=== PATIENT | male | born 1985 | race Caucasian/White ===

== ENCOUNTER 2019-07-16 00:35 | Emergency (ER) | payer MEDICAID ==
--- NOTE | 2019-07-16 00:42 | ED Physician Documentation ---
PD HPI ABD PAIN - Stated complaint Stated Complaint: ABD PX - History obtained from History obtained from: Patient - History of Present Illness Timing - onset: How many days ago (3-4) Timing - duration: Days Timing - details: Gradual onset Pain level now: 2 Quality: Pain Worsened by: Palpation Recently seen: Not recently seen - Additional information Additional information: c/o "painful lump" on abdominal wall x 3-4 days. He does admit to injecting heroin, but denies doing so anywhere besides [facility] (and specifically no into abdominal wall). Review of Systems Constitutional: denies: Fever GI: reports: Abdominal Pain (abdominal wall pain, but not abdominal pain per se). denies: Nausea, Vomiting Skin: reports: Lesions PD PAST MEDICAL HISTORY - Past Medical History Past Medical History: No - Present Medications Home Medications: Ambulatory Orders Medication Instructions Recorded Confirmed Cephalexin [Keflex] 500 mg PO Q6H #28 capsule 07/16/19 Sulfamethox/Trimeth 800/160 1 each PO BID #14 tablet 07/16/19 [Bactrim Ds 800/160] - Allergies Allergies/Adverse Reactions: Allergies Allergy/AdvReac Type Severity Reaction Status Date / Time No Known Drug Allergies Allergy Verified 07/16/19 01:06 - Social History Does the pt have substance abuse?: Yes Substance Use and Type: Heroin PD ED PE NORMAL - Vitals Vital signs reviewed: Yes - General General: Alert and oriented X 3, No acute distress, Well developed/nourished PD ED PE EXPANDED - Abdomen Abdomen Visual: 1 - rash (confluent, flat erythema that is minimally tender, without swelling or raised/palpable margins. No fluctuance or discharge.), tenderness Results - Vitals Vitals: Vital Signs - 24 hr 07/16/19 07/16/19 00:50 02:04 Temperature 37.6 C H 37.0 C Heart Rate 98 88 Respiratory 16 16 Rate Blood Pressure 139/68 H 155/70 H O2 Saturation 99 100 Oxygen O2 Source Room air PD MEDICAL DECISION MAKING - ED course Complexity details: considered differential, d/w patient Departure - Departure Disposition: 01 Home, Self Care Clinical Impression: Cellulitis Qualifiers: Site of cellulitis: trunk Site of cellulitis of trunk: abdominal wall Qualified Code(s): L03.311 - Cellulitis of abdominal wall Condition: Good Instructions: ED Infec Skin Cellulitis Prescriptions: Cephalexin [Keflex] 500 mg PO Q6H #28 capsule Sulfamethox/Trimeth 800/160 [Bactrim Ds 800/160] 1 each PO BID #14 tablet Discharge Date/Time: 07/16/19 02:07
[2019-07-16] MEDS ORDERED: cefTRIAXone 1 GM VIAL IM STA (01:23)
[2019-07-16] MEDS ORDERED: LIDOCAINE 1% 2 ML VIAL MC ONE (01:24)
[2019-07-16] MEDS ORDERED: SULFAMETH/TRIMETH DS 800/160 MG TABLET PO STA (01:24)
[2019-07-16 02:05] VITALS: BP 155/70
== END 2019-07-16 02:07 | disposition home or self-care (01) ==
LOC: ED 00:35
DX: L03.311 Cellulitis of abdominal wall (principal)
CPT/HCPCS: 96372; 99283; A9270

== ENCOUNTER 2023-04-17 00:11 | Outpatient (CLI) | payer MEDICAID | END 2023-04-17 23:59 | disposition critical access hospital (66) | LOC: EMS 00:11 | DX: R06.02 Shortness of breath (principal); R05.9 Cough, unspecified; R09.3 Abnormal sputum; F11.90 Opioid use, unspecified, uncomplicated | CPT/HCPCS: A0425; A0429; A0999 ==

== ENCOUNTER 2023-04-17 00:34 | Emergency (ER) | payer MEDICAID ==
--- NOTE | 2023-04-17 01:07 | ED Physician Documentation ---
PD HPI DYSPNEA - Stated complaint Stated Complaint: SOA, RECENT PNA - Chief complaint Chief Complaint: Resp - History obtained from History obtained from: Patient - Additional information Additional information: Patient is a 37-year-old male presenting for evaluation of feeling short of breath. Patient states he was recently admitted at [facility] from 07 06- for pneumonia. He states he left AGAINST MEDICAL ADVICE. He did fill his prescriptions for the antibiotics but has not been taking them. He is here at his parents house now. He does admit to fentanyl use and last used yeste rday. Worsening shortness of breath today.No fevers or chest pain.Denies alcohol use. Review of Systems Constitutional: denies: Fever Cardiac: denies: Chest pain / pressure Respiratory: reports: Dyspnea, Cough GI: denies: Abdominal Pain, Vomiting : denies: Dysuria PD PAST MEDICAL HISTORY - Past Medical History Past Medical History: Yes Musculoskeletal: Chronic back pain - Past Surgical History Past Surgical History: Yes Ortho: Other - Present Medications Home Medications: Ambulatory Orders Medication Instructions Recorded Confirmed No Known Home Medications 04/17/23 04/17/23 - Allergies Allergies/Adverse Reactions: Allergies Allergy/AdvReac Type Severity Reaction Status Date / Time NSAIDS (Non-Steroidal Allergy Unknown Verified 04/17/23 00:46 Anti-Inflamma - Social History Does the pt smoke?: Yes Smoking Status: Current every day smoker Does the pt drink ETOH?: No Does the pt have substance abuse?: Yes Substance Use and Type: Other - Immunizations Immunizations are current?: Yes - POLST Patient has POLST: No PD ED PE NORMAL - General General: Alert and oriented X 3, Well developed/nourished - HEENT HEENT: Atraumatic, Moist mucous membranes - Neck Neck: Supple, no meningeal sign - Cardiac Cardiac: Strong equal pulses, Other (Tachycardic, regular rhythm) - Respiratory Respiratory: Other (Tachypneic, coarse breath sounds bilaterally) - Abdomen Abdomen: Normal bowel sounds, Soft, Non tender, Non distended - Derm Derm: Warm and dry - Extremities Extremities: No calf tenderness / cord - Neuro Neuro: Normal speech Results - Vitals Vitals: Vital Signs - 24 hr 04/17/23 04/17/23 04/17/23 00:38 01:20 01:52 Temperature 36.5 C Heart Rate 124 H 108 H Respiratory 41 H 40 H 28 H Rate Blood Pressure 111/66 107/76 O2 Saturation 100 42 L 85 L If not protocol 4 13 : Oxygen Flow, liters/minute 04/17/23 04/17/23 02:13 04:00 Temperature Heart Rate 108 H 106 H Respiratory 30 H 31 H Rate Blood Pressure 114/77 O2 Saturation 94 93 If not protocol 15 13 : Oxygen Flow, liters/minute Oxygen O2 Source Non-rebreather mask Oxygen Flow Rate 13 - EKG (time done) 0156 EKG releavant findings:: EKG personally interpreted by author of this note. Relevant findings are: Rate 108, sinus tachycardia, no STEMI, QTc 443, motion artifact in anterior leads - Labs Labs: Laboratory Tests 04/17/23 04/17/23 04/17/23 01:10 01:40 01:40 WBC 12.5 H RBC 4.09 L Hgb 10.0 L Hct 32.9 L MCV 80.4 MCH 24.4 L MCHC 30.4 L RDW 17.3 H Plt Count 318 MPV 10.4 Neut # (Auto) 10.4 H Lymph # (Auto) 1.4 L [place] # (Auto) 0.5 Eos # (Auto) 0.0 Baso # (Auto) 0.0 Absolute Nucleated RBC 0.00 Nucleated RBC % 0.0 Bld Gas Analysis Time 0119 Sample Site RIGHT RADIAL ABG pH 7.48 H ABG pCO2 34 ABG pO2 33 L* ABG HCO3 24.2 ABG Total CO2 25.2 ABG O2 Saturation 57 L* ABG Base Excess 1.0 Steve Test POSITIVE O2 Delivery Device NASAL CANNULA O2 Liters/Min 4.00 Sodium 133 L Potassium 4.4 Chloride 97 L Carbon Dioxide 23 Anion Gap 13.0 BUN 46 H Creatinine 1.3 Estimated GFR (MDRD) 62 L Glucose 118 H Lactic Acid Calcium 8.6 Total Bilirubin 0.4 AST 36 ALT 18 Alkaline Phosphatase 79 B-Natriuretic Peptide Total Protein 7.7 Albumin 2.9 L Globulin 4.8 H Albumin/Globulin Ratio 0.6 L Lipase < 10 L Nasal Adenovirus (PCR) Nasal B. parapertussis DNA (PCR) Nasal Coronavir 229E PCR Nasal Coronavir HKU1 PCR Nasal Coronavir NL63 PCR Nasal Coronavir OC43 PCR Nasal Enterovir/Rhinovir PCR Nasal Influenza B PCR Nasal Influenza A PCR Nasal Parainfluen 1 PCR Nasal Parainfluen 2 PCR Nasal Parainfluen 3 PCR Nasal Parainfluen 4 PCR Nasal RSV (PCR) Nasal B.pertussis DNA PCR Nasal C.pneumoniae (PCR) Guy Human Metapneumo PCR Nasal M.pneumoniae (PCR) Nasal SARS-CoV-2 (PCR) 04/17/23 04/17/23 04/17/23 01:40 01:40 02:26 WBC RBC Hgb Hct MCV MCH MCHC RDW Plt Count MPV Neut # (Auto) Lymph # (Auto) [place] # (Auto) Eos # (Auto) Baso # (Auto) Absolute Nucleated RBC Nucleated RBC % Bld Gas Analysis Time Sample Site ABG pH ABG pCO2 ABG pO2 ABG HCO3 ABG Total CO2 ABG O2 Saturation ABG Base Excess Steve Test O2 Delivery Device O2 Liters/Min Sodium Potassium Chloride Carbon Dioxide Anion Gap BUN Creatinine Estimated GFR (MDRD) Glucose Lactic Acid 3.8 H* Calcium Total Bilirubin AST ALT Alkaline Phosphatase B-Natriuretic Peptide 861 H Total Protein Albumin Globulin Albumin/Globulin Ratio Lipase Nasal Adenovirus (PCR) NOT DETECTED Nasal B. parapertussis DNA (PCR) NOT DETECTED Nasal Coronavir 229E PCR NOT DETECTED Nasal Coronavir HKU1 PCR NOT DETECTED Nasal Coronavir NL63 PCR NOT DETECTED Nasal Coronavir OC43 PCR NOT DETECTED Nasal Enterovir/Rhinovir PCR NOT DETECTED Nasal Influenza B PCR NOT DETECTED Nasal Influenza A PCR NOT DETECTED Nasal Parainfluen 1 PCR NOT DETECTED Nasal Parainfluen 2 PCR NOT DETECTED Nasal Parainfluen 3 PCR NOT DETECTED Nasal Parainfluen 4 PCR NOT DETECTED Nasal RSV (PCR) DETECTED A Nasal B.pertussis DNA PCR NOT DETECTED Nasal C.pneumoniae (PCR) NOT DETECTED Guy Human Metapneumo PCR NOT DETECTED Nasal M.pneumoniae (PCR) NOT DETECTED Nasal SARS-CoV-2 (PCR) NOT DETECTED PD Medical Decision Making - ED course Complexity details: reviewed results, re-evaluated patient, d/w patient ED course: 352 - D/W Dr. Armstrong (ICU, [facility]). Accepts patient for transfer. 404 - D/W pt. He reports feeling better. He remains on a nonrebreather with O2 sats between 92 to 94%. He is able to tell me that he understands the plan that he has a going to [facility] in [place]. He also request that I call his father Yadiel at [phone] weight. I did attempt to call his father but there was no answer so I did leave a voice message to call back to the ER. 0424 - Prefer patient to be transported by air given duration it would take ground EMS. However air transport is not available due to weather and icing issues so he will need to go by ground. Discussed with lead medic will arrange for an ambulance to be available. Pt is a 37 yo M with SOA. H/O IVDA. Recent admission for PNA and signed out AMA without completing course of antibiotics. Pt is tachycardic and tachypneic. Coarse breath sounds. Needing increasing O2 requirements. ABG with mild alkalosis - possible venous given low O2. CBC, chemistries, reviewed. Lactic 3.8. Chest XR with mutlifocal PNA. Pt given Iv fluid bolus which improved tachycardia. Given elevated O2 requirements and chest XR and recent hospitalization, pt started on cefepime and vancomycin. Swab + for RSV. No ICU beds available at [facility] and pt requiring NRB to maintain O2 sat. D/W [facility] who accepts in transfer. Air transport not available due to weather so pt transported by ground. Pt appears more comfortable, does not look like he is getting fatigued. Answering questions reliably and understands plan for transport. Attempted to call father per pt's request and left VM. Departure - Departure Disposition: 02 Transfer Acute Care Hosp Clinical Impression: Acute hypoxic respiratory failure, Multifocal pneumonia, IV drug abuse, Lactic acidosis Condition: Serious Forms: PCP List Discharge Date/Time: 04/17/23 04:50
[2023-04-17 01:25] LABS: ABG PCO2 34 mmHg (34-45); ABG PH 7.48 (7.35-7.45)
[2023-04-17 01:26] LABS: ABG HCO3 24.2 mmol/L (22.0-26.0); ABG PO2 33 mmHg (80-100); ABG TCO2 25.2 MMOL/L (21.0-29.0)
[2023-04-17 01:28] LABS: ABG OXYGEN SATURATION 57 % (94-98); ALLEN TEST POSITIVE
--- NOTE | 2023-04-17 01:28 | XRAY Report ---
PROCEDURE: Chest 1V INDICATIONS: SOA TECHNIQUE: One view of the chest was acquired. COMPARISON: None. FINDINGS: Surgical changes and devices: None. Lungs and pleura: No pleural effusions or pneumothorax. Patchy bilateral pulmonary opacities, most p ronounced within the bilateral mid and upper lung larsen.. Mediastinum: Mediastinal contours appear normal. Heart size is normal. Bones and chest wall: No suspicious bony lesions. Overlying soft tissues appear unremarkable. IMPRESSION: Patchy bilateral pulmonary opacities, concerning for multifocal pneumonia. Reviewed by: Jordi Mahoney MD on 04/17/2023 1:27 AM PST Approved by: Jordi Mahoney MD on 04/17/2023 1:27 AM PST Station ID: [id number]
[2023-04-17 01:47] LABS: BASOPHILS % (AUTO) 0.2 %; HCT - HEMATOCRIT 32.9 % (42.0-52.0); LYMPHOCYTES # (AUTO) 1.4 10^3/uL (1.5-3.5); LYMPHOCYTES % (AUTO) 11.5 %; MEAN CORPUSCULAR HEMOGLOBIN 24.4 pg (27.0-31.0); MEAN CORPUSCULAR HGB CONC 30.4 g/dL (32.0-36.0); MEAN CORPUSCULAR VOLUME 80.4 fL (80.0-94.0); MEAN PLATELET VOLUME 10.4 fL (7.4-11.4); MONOCYTES # (AUTO) 0.5 10^3/uL (0.0-1.0); MONOCYTES % (AUTO) 4.2 %; NEUTROPHILS # (AUTO) 10.4 10^3/uL (1.5-6.6); NEUTROPHILS % (AUTO) 83.4 %; PLT - PLATELET COUNT 318 10^3/uL (130-450); RED BLOOD COUNT 4.09 10^6/uL (4.70-6.10); RED CELL DISTRIBUTION WIDTH 17.3 % (12.0-15.0); WHITE BLOOD COUNT 12.5 x10^3/uL (4.8-10.8)
[2023-04-17] MEDS ORDERED: SODIUM CHLORIDE 0.9% 1,000 ML IV STA (01:51)
[2023-04-17 02:05] LABS: ALBUMIN 2.9 g/dL (3.2-5.5); ALBUMIN/GLOBULIN RATIO 0.6 (1.0-2.2); ALKALINE PHOSPHATASE 79 IU/L (42-121); ALT ALANINE AMINOTRANSFERASE 18 IU/L (10-60); AST ASPARTATE AMINOTRANSFERASE 36 IU/L (10-42); BILIRUBIN,TOTAL 0.4 mg/dL (0.2-1.0); BUN - BLOOD UREA NITROGEN 46 mg/dL (6-20); CALCIUM 8.6 mg/dL (8.5-10.3); CARBON DIOXIDE - CO2 23 mmol/L (21-32); CHLORIDE 97 mmol/L (101-111); CREATININE 1.3 mg/dL (0.6-1.3); GFR - MDRD 62 (>89); GLUCOSE 118 mg/dL (74-104); POTASSIUM 4.4 mmol/L (3.5-4.5); SODIUM 133 mmol/L (135-145); TOTAL PROTEIN 7.7 g/dL (6.4-8.9)
[2023-04-17 02:09] LABS: LIPASE < 10 U/L (11-82)
[2023-04-17] MEDS ORDERED: VANCOMYCIN 1 GM VIAL ONE (02:30)
[2023-04-17] MEDS: VANCOMYCIN INJ 1 GM in SODIUM CHLORIDE 0.9% 500 ML IV STA (02:48)
[2023-04-17] MEDS: CEFEPIME 2 GM in SODIUM CHLORIDE 0.9% MINIBAG 100 ML IV STA (02:48)
[2023-04-17] MEDS: SODIUM CHLORIDE 0.9% 1,000 ML IV STA ×2 (02:49→02:51)
[2023-04-17 03:27] LABS: B. PARAPERTUSSIS- RESP PCR PAN NOT DETECTED; B. PERTUSSIS- RESP PCR PANEL NOT DETECTED; C. PNEUMONIAE- RESP PCR PANEL NOT DETECTED; CORONAVIRUS 229E-RESP PCR NOT DETECTED; CORONAVIRUS HKU1-RESP PCR NOT DETECTED; CORONAVIRUS NL63-RESP PCR NOT DETECTED; CORONAVIRUS OC43-RESP PCR NOT DETECTED; HUMAN METAPNEUMOVIRUS NOT DETECTED; INFLUENZA A- RESP PCR PANEL NOT DETECTED; INFLUENZA B - RESP PCR PANEL NOT DETECTED; M. PNEUMONIAE- RESP PCR PANEL NOT DETECTED; PARAINFLUENZA VIRUS 1 NOT DETECTED; PARAINFLUENZA VIRUS 2 NOT DETECTED; PARAINFLUENZA VIRUS 3 NOT DETECTED; PARAINFLUENZA VIRUS 4 NOT DETECTED; RHINOVIRUS/ENTEROVIRUS NOT DETECTED; RSV- RESP PCR PANEL DETECTED; SARS-CoV-2 -RESP PCR PANEL NOT DETECTED
[2023-04-17 04:16] VITALS: BP 114/77; O2SAT 93
== END 2023-04-17 04:50 | disposition short-term general hospital (02) ==
LOC: ED 00:34
DX: J96.01 Acute respiratory failure with hypoxia (principal); J18.9 Pneumonia, unspecified organism; E87.20 Acidosis, unspecified; R00.0 Tachycardia, unspecified; F17.200 Nicotine dependence, unspecified, uncomplicated; Z11.52 Encounter for screening for COVID-19
CPT/HCPCS: 36415; 36600; 71045; 80053; 82803; 83605; 83690; 83880; 85025; 87040; 87633; 93005; 96361; 96365; 96375; 99285; J3370

== ENCOUNTER 2023-04-17 04:51 | Outpatient (CLI) | payer MEDICAID | END 2023-04-17 23:59 | disposition short-term general hospital (02) | LOC: EMS 04:51 | PROVIDERS: ATTEND Emergency Medicine | DX: R09.02 Hypoxemia (principal); J18.9 Pneumonia, unspecified organism; B97.4 Respiratory syncytial virus as the cause of diseases classified elsewhere | CPT/HCPCS: A0425; A0426 ==

== ENCOUNTER 2023-05-13 12:40 | Outpatient (CLI) | payer MEDICAID ==
[2023-05-13 14:44] LABS: BASOPHILS # (AUTO) 0.1 10^3/uL (0.0-0.1); BASOPHILS % (AUTO) 0.7 %; EOSINOPHILS # (AUTO) 0.8 10^3/uL (0.0-0.7); EOSINOPHILS % (AUTO) 8.5 %; HCT - HEMATOCRIT 34.3 % (42.0-52.0); HGB - HEMOGLOBIN 10.3 g/dL (14.0-18.0); LYMPHOCYTES # (AUTO) 3.3 10^3/uL (1.5-3.5); MEAN CORPUSCULAR HEMOGLOBIN 26.5 pg (27.0-31.0); MEAN CORPUSCULAR VOLUME 88.4 fL (80.0-94.0); MEAN PLATELET VOLUME 9.4 fL (7.4-11.4); MONOCYTES # (AUTO) 0.9 10^3/uL (0.0-1.0); MONOCYTES % (AUTO) 8.9 %; NEUTROPHILS # (AUTO) 4.4 10^3/uL (1.5-6.6); NEUTROPHILS % (AUTO) 45.9 %; PLT - PLATELET COUNT 334 10^3/uL (130-450); RED BLOOD COUNT 3.88 10^6/uL (4.70-6.10); RED CELL DISTRIBUTION WIDTH 21.4 % (12.0-15.0); WHITE BLOOD COUNT 9.7 x10^3/uL (4.8-10.8)
[2023-05-13 14:45] LABS: SLIDE REVIEW? Indicated
[2023-05-13 14:57] LABS: PLATELET ESTIMATE, MANUAL NORMAL (130-450,000) (NORMAL); PLATELET MORPHOLOGY NORMAL APPEARANCE (NORMAL)
[2023-05-13 15:32] LABS: ALBUMIN 3.6 g/dL (3.2-5.5); ALBUMIN/GLOBULIN RATIO 1.1 (1.0-2.2); ALKALINE PHOSPHATASE 74 IU/L (42-121); ALT ALANINE AMINOTRANSFERASE 23 IU/L (10-60); AST ASPARTATE AMINOTRANSFERASE 17 IU/L (10-42); BILIRUBIN,TOTAL 0.4 mg/dL (0.2-1.0); BUN - BLOOD UREA NITROGEN 36 mg/dL (6-20); CALCIUM 9.3 mg/dL (8.5-10.3); CARBON DIOXIDE - CO2 33 mmol/L (21-32); CHLORIDE 101 mmol/L (101-111); CHOL/HDL RATIO 2.5 (<5.0); CHOLESTEROL 179 mg/dL; CREATININE 0.6 mg/dL (0.6-1.3); GFR - MDRD 152 (>89); GLUCOSE 87 mg/dL (74-104); HDL CHOLESTEROL 73 mg/dL; LDL CHOLESTEROL,CALCULATED 93 mg/dL; LDL/HDL RATIO 1.3 (<3.6); POTASSIUM 4.6 mmol/L (3.5-4.5); SODIUM 137 mmol/L (135-145); TOTAL PROTEIN 6.8 g/dL (6.4-8.9); TRIGLYCERIDES 65 mg/dL (48-352); VLDL CHOLESTEROL 13 mg/dL
[2023-05-13 22:36] LABS: ESTIMATED AVERAGE GLUCOSE 74 mg/dL (70-100); HEMOGLOBIN A1c% 4.2 % (4.27-6.07)
== END 2023-05-13 12:41 | disposition home or self-care (01) ==
LOC: LAB.S 12:40
PROVIDERS: ATTEND Physician Assistant Medical
DX: J96.01 Acute respiratory failure with hypoxia (principal); Z13.9 Encounter for screening, unspecified
CPT/HCPCS: 36415; 80053; 80061; 83036; 83721; 85025

== ENCOUNTER 2023-06-23 13:49 | Outpatient (CLI) | payer MEDICAID ==
[2023-06-23 20:07] LABS: ABSOLUTE RETICS # AUTO 0.041 10^6/uL (0.020-0.110); BASOPHILS % (AUTO) 0.5 %; EOSINOPHILS # (AUTO) 0.6 10^3/uL (0.0-0.7); EOSINOPHILS % (AUTO) 8.9 %; HCT - HEMATOCRIT 36.3 % (42.0-52.0); HGB - HEMOGLOBIN 11.6 g/dL (14.0-18.0); LYMPHOCYTES # (AUTO) 2.5 10^3/uL (1.5-3.5); LYMPHOCYTES % (AUTO) 40.7 %; MEAN CORPUSCULAR HEMOGLOBIN 26.5 pg (27.0-31.0); MEAN CORPUSCULAR VOLUME 82.9 fL (80.0-94.0); MEAN PLATELET VOLUME 9.4 fL (7.4-11.4); MONOCYTES # (AUTO) 0.6 10^3/uL (0.0-1.0); MONOCYTES % (AUTO) 10.4 %; NEUTROPHILS # (AUTO) 2.4 10^3/uL (1.5-6.6); NEUTROPHILS % (AUTO) 39.2 %; PLT - PLATELET COUNT 211 10^3/uL (130-450); RED BLOOD COUNT 4.38 10^6/uL (4.70-6.10); RED CELL DISTRIBUTION WIDTH 14.9 % (12.0-15.0); RETICULOCYTE COUNT % (AUTO) 0.94 % (0.5-2.3); WHITE BLOOD COUNT 6.2 x10^3/uL (4.8-10.8)
== END 2023-06-23 13:50 | disposition home or self-care (01) ==
LOC: LAB.S 13:49
PROVIDERS: ATTEND Physician Assistant Medical
DX: D64.9 Anemia, unspecified (principal)
CPT/HCPCS: 36415; 81599; 82607; 82728; 82746; 83540; 84466; 85025; 85045

== ENCOUNTER 2024-11-16 09:10 | Observation (INO) ==
--- NOTE | 2024-11-16 09:25 | ED Physician Documentation ---
PD HPI DYSPNEA Stated complaint Stated Complaint: SOA, COUGH BLOOD Chief complaint Chief Complaint: Resp History obtained from History obtained from: Patient History of Present Illness Timing - onset: Today and Last night Timing - onset during: Rest Timing - details: Abrupt onset and Still present Associated symptoms: Cough, Hemoptysis, Wheezing and Chest pain / discomfort (right sided); No Palpitations, Bilateral edema or Unilateral edema Similar symptoms before: Diagnosis (pneumonia with PE/lung embolus a year ago, was on blood thinner for 6 months. ) Recently seen: Clinic (methadone clinic daily (except Wednesday) and gets Methadone 75 mg daily. ) Meds/Allgy Home Medications Ambulatory Orders Medication Instructions Recorded Confirmed methadone 10 mg/mL oral concentrate 75 mg PO DAILY 04/1111/16/24 Allergies Allergies Allergy/AdvReac Type Severity Reaction Status Date / Time NSAIDS (Non-Steroidal Allergy Unknown Verified 11/16/24 09:18 Anti-Inflamma PFSH Active Problems All Active Problems (Updated 11/16/24 @ 15:45 by Marco Torres) History of pulmonary embolism (Acute) Opiate dependence, continuous (Acute) CAP (community acquired pneumonia) (Acute) Opacity of lung on imaging study (Acute) Methadone dependence (Acute) Cough with hemoptysis (Acute) Hypoxia (Acute) Pneumonia (Acute) Medical History Medical History (Updated 11/16/24 @ 15:45 by Marco Torres) Pulmonary embolism Acute hypoxic respiratory failure History of pneumococcal infection Surgical History Surgical History (Updated 06/22/24 @ 10:58 by Maria Fernanda Miles RN) History of knee surgery Social History Social History Smoking Status: Smoker with current status unk How many cigarettes a day do you smoke? (20 cigarettes=1 Pk): 20 Patient requests smoking cessation consult: No Level: Independent Do you feel safe in your home environment?: Yes History of physical, verbal, emotional, or financial abuse?: No Substance Use: other Substance Use Details: fentanyl POLST Patient has POLST: No Exam Exam Vital Signs: Vital Signs x48h Temp Pulse Resp BP Pulse Ox 11/16/24 09:15 37.3 C 101 H 98 H 117/64 88 L Constitutional normal general appearance, distress noted (moderate) and (respiratory) and average body habitus HENMT oropharynx normal Eyes PERRL and EOMs intact bilaterally Neck/C-Spine supple and no meningeal signs Lymph no lymphadenopathy noted Chest palpation of chest normal Respiratory breath sounds unequal, abnormal respiratory effort (labored), clear to auscultation bilaterally (decreased sounds on right with coarse/wet sounds c/w infection and wheeze.), no rales and no retractions Cardiovascular heart rate abnormal (tachycardic), regular rhythm noted, no murmur and no edema Gastrointestinal abdomen soft to palpation, nontender to palpation and nondistended Extremities no tenderness (particularly no calf tenderness.) and full ROM Neurology no focal motor deficit noted Psychiatry mental status grossly normal, oriented x3, thought process normal and affect normal Skin skin color normal Results Vitals Vitals: Vital Signs - 24 hr 11/16/24 09:15 11/16/24 09:45 11/16/24 09:45 Temperature 37.3 C Temperature Source Temporal Artery Scan Pulse Rate 101 H Respiratory Rate 98 H Blood Pressure 117/64 O2 Saturation 88 L Oxygen Delivery Method Nasal Cannula Nasal Cannula O2 Source Room air Oxygen Flow Rate 4 If not protocol: Oxygen Flow, liters/minute 4 Pain Intensity 8 11/16/24 10:02 11/16/24 11:17 11/16/24 11:30 Temperature Temperature Source Pulse Rate 83 84 Respiratory Rate 19 16 Blood Pressure 112/68 O2 Saturation 97 Oxygen Delivery Method O2 Source Nasal cannula Room air Oxygen Flow Rate If not protocol: Oxygen Flow, liters/minute 4 1 Pain Intensity 8 8 11/16/24 12:01 Temperature Temperature Source Pulse Rate Respiratory Rate Blood Pressure O2 Saturation Oxygen Delivery Method O2 Source Oxygen Flow Rate If not protocol: Oxygen Flow, liters/minute Pain Intensity 8 Oxygen O2 Source Room air Oxygen Flow Rate 4 Labs Labs: Laboratory Tests 11/16/24 11/16/24 09:29 09:48 WBC 16.7 H RBC 4.58 L Hgb 13.0 L Hct 38.5 L MCV 84.1 MCH 28.4 MCHC 33.8 RDW 13.2 Plt Count 195 MPV 10.1 Neut # (Auto) 14.3 H Lymph # (Auto) 1.1 L [place] # (Auto) 1.1 H Eos # (Auto) 0.0 Baso # (Auto) 0.1 Absolute Nucleated RBC 0.00 Nucleated RBC % 0.0 Sodium 133 L Potassium 3.8 Chloride 100 L Carbon Dioxide 26 Anion Gap 7.0 BUN 23 H Creatinine 0.9 Estimated GFR (MDRD) 94 Glucose 98 Calcium 9.4 Magnesium 2.1 Total Bilirubin 1.1 H AST 27 ALT 17 Alkaline Phosphatase 66 B-Natriuretic Peptide 67 Total Protein 7.7 Albumin 4.5 Globulin 3.2 Albumin/Globulin Ratio 1.4 Lipase < 10 L Procalcitonin Immunoas 5.64 H* Nasal Adenovirus (PCR) NOT DETECTED Nasal B. parapertussis DNA (PCR) NOT DETECTED Nasal Coronavir 229E PCR NOT DETECTED Nasal Coronavir HKU1 PCR NOT DETECTED Nasal Coronavir NL63 PCR NOT DETECTED Nasal Coronavir OC43 PCR NOT DETECTED Nasal Enterovir/Rhinovir PCR NOT DETECTED Nasal Influenza B PCR NOT DETECTED Nasal Influenza A PCR NOT DETECTED Nasal Parainfluen 1 PCR NOT DETECTED Nasal Parainfluen 2 PCR NOT DETECTED Nasal Parainfluen 3 PCR NOT DETECTED Nasal Parainfluen 4 PCR NOT DETECTED Nasal RSV (PCR) NOT DETECTED Nasal B.pertussis DNA PCR NOT DETECTED Nasal C.pneumoniae (PCR) NOT DETECTED Guy Human Metapneumo PCR NOT DETECTED Nasal M.pneumoniae (PCR) NOT DETECTED Nasal SARS-CoV-2 (PCR) NOT DETECTED Rads (name of study) chest CT: Relevant Findings:: Final report received and EMP independent interpretation of test Interpretation: EXAM: [id number] CT/TAN ([id number]) PROCEDURE: CT Angio Chest INDICATIONS: cough, hypoxia, hemoptysis, h/o PE CONTRAST: 80ml omni 300 TECHNIQUE: After the administration of intravenous contrast, 2 mm axial images were acquired from the pulmonary apices to the posterior costophrenic angles during the arterial phase. In addition, 1 mm lung kernel and 5 mm soft tissue kernel reconstructions were performed. 3-dimensional coronal oblique maximum intensity projection (MIP) reformats, 8 mm axial MIP, and 5 mm coronal and sagittal MPR reformats were then performed through the thorax. For radiation dose reduction, the following was used: automated exposure control, adjustment of mA and/or kV according to patient size. COMPARISON: Chest x-ray 11/16/2024 FINDINGS: Image quality: Excellent. Large vessels: No filling defects within the opacified pulmonary arteries, accounting for motion and contrast timing. No evidence of acute aortic syndrome or aortic aneurysm. Lungs and pleura: Consolidative opacity within the right middle lobe with thickening extending to the perihilar region, as well as confluent soft tissue density measuring approximately 1.7 cm at the level of the usha. No priors.. No pleural effusions. No pneumothorax. Mediastinum: Heart size is normal. No pericardial effusion. No large vessel abnormality. No mediastinal adenopathy by size criteria. Chest wall and lower neck: Thyroid is unremarkable. No axillary or supraclavicular adenopathy by size. Bones: No aggressive osseous abnormality. Appearance of hemangioma at T11 as well as T12. Upper Abdomen: Unremarkable. IMPRESSION: No pulmonary embolus. Consolidative opacity within the right base extending to the hilar region as well as areas within the mediastinum. While this could represent pneumonia with extensive reactive adenopathy, appearance can also be seen with malignancy. Recommend correlation to patient's symptoms and short interval imaging follow-up to document resolution. Reviewed by: Jessica Hemphill MD on 11/16/2024 10:48 AM PDT PD Medical Decision Making ED course Complexity details: re-evaluated patient (sats adequate on NC after neb treatment. Has coarse sounds right sided along with infiltrate c/w likely pneumonia given abrupt onset since yesterday. DIscussed options of treat for infection and consider outpt f/u for possible bronch vs transfer and he prefers hospitalization here. ), considered differential (consider PE, pneumonia, effusion, abscess, viral infection. ), d/w patient and d/w natural remedy consultant (Hospitalist service. ) Reviewed Lab Results: resp PCR testing negative for major viruses. blood testing showing elevated WBC of 16.7K and procalcitonin of 5.64. Tese represent mostly likely bacterial infection. Chest CT showing infiltrate and perihilar possible lymph nodes. No abscess. No PEs. Pt given IV fluids, Resp neb of albuterol, Cefepime antibiotic for broad coverage, his daily dose of methadone since he did not make it to his clinic today, and extra dose of pain med for his lung pain. Discharge Plan Discharge Patient Disposition: 66 [facility] DC/Xfer Condition: Stable Clinical Impression: Pneumonia, Hypoxia, Cough with hemoptysis, Methadone dependence, Opacity of lung on imaging study Interventions: ED Admission Assessment Last Done: 11/16/24 12:30 Vitals documented within 30 minutes of discharge?: Yes
[2024-11-16 09:44] LABS: HCT - HEMATOCRIT 38.5 % (42.0-52.0); HGB - HEMOGLOBIN 13.0 g/dL (14.0-18.0); MEAN PLATELET VOLUME 10.1 fL (7.4-11.4); NRBC ABSOLUTE COUNT (AUTO) 0.00 x10^3/uL; NUCLEATED RED BLOOD CELLS AUTO 0.0 /100WBC; PLT - PLATELET COUNT 195 10^3/uL (130-450); RED CELL DISTRIBUTION WIDTH 13.2 % (12.0-15.0)
[2024-11-16] MEDS: HYDROmorphone 1 MG/ML CARPUJECT IVP STA (10:02)
--- NOTE | 2024-11-16 10:07 | XRAY Report ---
PROCEDURE: XR Chest 1V INDICATIONS: cough/ dyspnea TECHNIQUE: One view of the chest was acquired. COMPARISON: None. FINDINGS: Surgical changes and devices: None. Lungs and pleura: Increased pulmonary vascularity. Mediastinum: Prominent right hilum. Bones and chest wall: No suspicious bony lesions. Overlying soft tissues appear unremarkable. IMPRESSION: Prominent right hilum. While this could be secondary to's cannot be excluded. CT chest is recommended. Reviewed by: Jessica Hemphill MD on 11/16/2024 10:04 AM PDT Approved by: Jessica Hemphill MD on 11/16/2024 10:04 AM PDT Station ID: [id number]
[2024-11-16 10:09] LABS: ALT ALANINE AMINOTRANSFERASE 17 IU/L (10-60); AST ASPARTATE AMINOTRANSFERASE 27 IU/L (10-42); BUN - BLOOD UREA NITROGEN 23 mg/dL (6-20); CARBON DIOXIDE - CO2 26 mmol/L (21-32); CREATININE 0.9 mg/dL (0.6-1.3); GFR - MDRD 94 (>89)
[2024-11-16 10:47] LABS: B. PARAPERTUSSIS- RESP PCR PAN NOT DETECTED; B. PERTUSSIS- RESP PCR PANEL NOT DETECTED; C. PNEUMONIAE- RESP PCR PANEL NOT DETECTED; CORONAVIRUS 229E-RESP PCR NOT DETECTED; CORONAVIRUS HKU1-RESP PCR NOT DETECTED; CORONAVIRUS NL63-RESP PCR NOT DETECTED; CORONAVIRUS OC43-RESP PCR NOT DETECTED; HUMAN METAPNEUMOVIRUS NOT DETECTED; INFLUENZA A- RESP PCR PANEL NOT DETECTED; INFLUENZA B - RESP PCR PANEL NOT DETECTED; M. PNEUMONIAE- RESP PCR PANEL NOT DETECTED; PARAINFLUENZA VIRUS 1 NOT DETECTED; PARAINFLUENZA VIRUS 2 NOT DETECTED; PARAINFLUENZA VIRUS 4 NOT DETECTED; RHINOVIRUS/ENTEROVIRUS NOT DETECTED; RSV- RESP PCR PANEL NOT DETECTED; SARS-CoV-2 -RESP PCR PANEL NOT DETECTED
--- NOTE | 2024-11-16 10:52 | CT Report ---
PROCEDURE: CT Angio Chest INDICATIONS: cough, hypoxia, hemoptysis, h/o PE CONTRAST: 80ml omni 300 TECHNIQUE: After the administration of intravenous contrast, 2 mm axial images were acquired from the pulmonary apices to the posterior costophrenic angles during the arterial phase. In addition, 1 mm lung kernel and 5 mm soft tissue kernel reconstructions were performed. 3-dimensional coronal oblique maximum intensity projection (MIP) reformats, 8 mm axial MIP, and 5 mm coronal and sagittal MPR reformats were then performed through the thorax. For radiation dose reduction, the following was used: automated exposure control, adjustment of mA and/or kV according to patient size. COMPARISON: Chest x-ray 11/16/2024 FINDINGS: Image quality: Excellent. Large vessels: No filling defects within the opacified pulmonary arteries, accounting for motion and contrast timing. No evidence of acute aortic syndrome or aortic aneurysm. Lungs and pleura: Consolidative opacity within the right middle lobe with thickening extending to the perihilar region, as well as confluent soft tissue density measuring approximately 1.7 cm at the level of the usha. No priors.. No pleural effusions. No pneumothorax. Mediastinum: Heart size is normal. No pericardial effusion. No large vessel abnormality. No mediastinal adenopathy by size criteria. Chest wall and lower neck: Thyroid is unremarkable. No axillary or supraclavicular adenopathy by size. Bones: No aggressive osseous abnormality. Appearance of hemangioma at T11 as well as T12. Upper Abdomen: Unremarkable. IMPRESSION: No pulmonary embolus. Consolidative opacity within the right base extending to the hilar region as well as areas within the mediastinum. While this could represent pneumonia with extensive reactive adenopathy, appearance can also be seen with malignancy. Recommend correlation to patient's symptoms and short interval imaging follow-up to document resolution. Reviewed by: Jessica Hemphill MD on 11/16/2024 10:48 AM PDT Approved by: Jessica Hemphill MD on 11/16/2024 10:48 AM PDT Station ID: [id number]
[2024-11-16] MEDS: CEFEPIME 2 GM VIAL IVP STA (11:12)
[2024-11-16] MEDS ORDERED: ALBUTEROL NEB 2.5 MG/3 ML INH ONE (11:22)
[2024-11-16] MEDS: ALBUTEROL NEB 2.5 MG/3 ML INH STA (11:28)
[2024-11-16] MEDS: METHADONE 50 MG/5 ML ORAL SYRINGE PO STA (12:01)
[2024-11-16] MEDS ORDERED: LIDOCAINE 1% 2 ML VIAL MC STA (12:12)
[2024-11-16] MEDS ORDERED: cefTRIAXone 1 GM VIAL IVP SCH (13:00)
[2024-11-16] MEDS ORDERED: IPRATROPIUM/ALBUTEROL 3 ML NEB INH PRN (13:11)
[2024-11-16] MEDS ORDERED: SODIUM CHLORIDE FLUSH 0.9% 10 ML SYRINGE IVP PRN (13:11)
[2024-11-16] MEDS ORDERED: ONDANSETRON 4 MG/2 ML VIAL IVP PRN (13:11)
--- NOTE | 2024-11-16 13:16 | HISTORY & PHYSICAL EXAMINATION ---
<Statement entered by BASSAM Mina - 11/16/24 22:07> Attestation that the patient was seen and examined by me with a separate encounter after being seen by PA student. I reviewed the student's documentation including the patient history, physical examination, laboratory, imaging clinical assessment and treatment plan. I have discussed the management of the patient with the student and with the patient. There are no changes. I have spent 85 minutes in the care of this patient today. This includes time [id number], review and ordering of diagnostic imaging and laboratory studies and consultation with other providers. Monitoring the patient's signs symptoms, evaluation of medication effectiveness and patient's response to treatment. Chief Complaint Chief Complaint Chief Complaint: SOA and Pleuritic chest pain History of Present Illness History of Present Illness HPI Comment/Other: Brendan Jimenez is a 39 year old male with PMH of PE, Opiate Dependence, and who presented to the hospital for SOA with pleuritic chest pain. SOA and pleuritic chest pain started last night at 10pm which was accompanied by hemoptysis. Pain is described a sharp, localized to the anterior ribs near 4-5 ICS AAL, breathing makes is hurt worse, nothing makes it better. Patient reports coughing with clear sputum tinged with small amounts of blood, denies clots. Symptoms were preceded with patient smoking Fentanyl at 9pm last night and has progressed throughout the night. Denies recent illness and no sick contacts. Patient says symptoms are similar to the last time he was hospitalized for PNA. Patient also reported left calf cramping when hes laying down for a long period of time. Patient has a long standing history of opiate dependence and visits a Methadone clinic in [place] daily with exceptions to Wednesday. He was hospitalized in 04/17/23 for pulmonary embolism. SHx: Patient endorses a significant smoking history of 30 pack years. No ETOH. Uses Fentanyl daily. Currently unemployed and lives with his parents. Meds/Allgy Home Medications Ambulatory Orders Medication Instructions Recorded Confirmed methadone 10 mg/mL oral concentrate 75 mg PO DAILY 04/1111/16/24 Allergies Allergies Allergy/AdvReac Type Severity Reaction Status Date / Time NSAIDS (Non-Steroidal Allergy Unknown Verified 11/16/24 09:18 Anti-Inflamma PFSH Active Problems All Active Problems (Updated 11/16/24 @ 15:45 by Marco Torres) History of pulmonary embolism (Acute) Opiate dependence, continuous (Acute) CAP (community acquired pneumonia) (Acute) Opacity of lung on imaging study (Acute) Methadone dependence (Acute) Cough with hemoptysis (Acute) Hypoxia (Acute) Pneumonia (Acute) Medical History Medical History (Updated 11/16/24 @ 15:45 by Marco Torres) Pulmonary embolism Acute hypoxic respiratory failure History of pneumococcal infection Surgical History Surgical History (Updated 06/22/24 @ 10:58 by Maria Fernanda Miles RN) History of knee surgery Social History Social History How many cigarettes a day do you smoke? (20 cigarettes=1 Pk): 20 Patient requests smoking cessation consult: No Level: Independent Do you feel safe in your home environment?: Yes History of physical, verbal, emotional, or financial abuse?: No Substance Use: other Substance Use Details: fentanyl POLST Patient has POLST: No Review of Systems Constitutional Reports: Weight gain (Weight gain since 12/09, patient states he was 150lbs and currently 230lbs); Denies: Fever, Chills, Diaphoresis, Night sweats, Poor appetite or Change in sleep pattern Cardiovascular Reports: shortness of breath with exertion Respiratory Reports: Shortness of breath, Cough, Pleuritic pain and Coughing up blood Exam Exam Vital Signs: Vital Signs x48h Temp Pulse Pulse Resp BP BP Pulse Ox 11/16/24 13:41 11/16/24 12:51 37.0 C 89 18 112/63 93 11/16/24 12:22 100 18 112/68 98 11/16/24 11:30 84 16 11/16/24 11:17 83 19 112/68 97 11/16/24 09:45 11/16/24 09:15 37.3 C 101 H 98 H 117/64 88 L O2 Flow Rate 11/16/24 13:41 4 11/16/24 12:51 4 11/16/24 12:22 4 11/16/24 11:30 1 11/16/24 11:17 4 11/16/24 09:45 4 11/16/24 09:15 Constitutional normal general appearance, no apparent distress, average body habitus and alert HENMT normocephalic, head/scalp atraumatic, hearing grossly normal bilaterally, nasal mucous membranes normal, oral mucous membranes normal and dentition abnormal Eyes PERRL, EOMs intact bilaterally, conjunctivae normal and no scleral icterus Neck/C-Spine visual inspection normal, trachea midline, cervical full ROM noted, supple, no meningeal signs and thyroid normal Lymph no lymphadenopathy noted Chest inspection of chest normal and palpation of chest abnormal (Tender to palpation right chest anterior axillary 4-5 ICS) Inspection of the chest was unremarkable, Breath sounds were Respiratory breath sounds equal bilaterally, normal respiratory effort, no wheezes, rales noted (Crackles) (base) and no use of accessory muscles Cardiovascular normal heart rate noted, no gallop, no rub, no murmur and no JVD Gastrointestinal abdomen normal to inspection, abdomen soft to palpation, nontender to palpation, nondistended, normoactive bowel sounds, no hepatosplenomegaly, no masses, no pulsatile mass and no hernia Extremities abnormal to inspection (Statis dermatitis along lateral malleolus of left ankle), normal to palpation, no tenderness, no joint enlargement and no deformity Neurology carpet winder II-XII intact, no movement abnormality noted, no focal motor deficit noted and speech normal Psychiatry mental status grossly normal, oriented x3, thought process normal, cooperative, affect normal, psychomotor activity normal and memory normal Skin skin color normal, no rash, no lesions, no ecchymosis noted, no wounds, no lacerations, skin turgor normal, no jaundice and no petechiae Sepsis Event Note (H) Evaluation Current Stage of Sepsis: Sepsis Possible source of Sepsis: positive Pulmonary Sepsis Criteria Sepsis Criteria: WBC count greater than 12,000 or less than 4000 Conclusion/Plan Problem List (1) Acute hypoxic respiratory failure: Plan: 39M presented to ED hypoxia (SPO2 88). Patient has significant smoking history both tobacco and drugs. Oxygenation has improved with treatment and is currently on 2L NC down from 6L NC, will continue to wean off oxygen. Respiratory failure most likely due to CAP and not pulmonary embolism. No PE findings on CT. Treatment: DuoNeb PRN, Incentive Spirometry, Oxygen NC (2) CAP (community acquired pneumonia): Plan: Symptoms started last night at around 10pm with a cough, precipitating factors included smoking fenatyl at around 9pm. Cough was accompanied by pleuritic chest pain and hemoptysis. Chest CT revealed a consolidated opacity in right base extending to hilar region and mediastinum. Impression mentions that these findings could be community service representative of pneumonia with adenopathy or possible malignancy. Labs show elevated WBCs (16.7) and Procalcitonin (5.64). Viral respiratory panel was negative, blood cultures pending. Patient was hospitalized for CAP 11/17/23 at [facility] in [place]. Orders: Blood cultures, MRSA, ACID-FAST smear, Mycoplasma Pneumonia IgG/IgM Treatment: Rocephin IV and Zithromax, Lidocaine Patch, Tylenol Qualifiers: Laterality: right Lung location: lower lobe of lung Qualified Code(s): J18.9 - Pneumonia, unspecified organism (3) Opiate dependence, continuous: Plan: Longstanding issue, Patient travels to Methadone Clinic in [place], [place] Wednesday through Wednesday for daily evaluation and medication. Patient endorses smoking Fentanyl daily for the past 6 years. Patient expressed no consideration to quit his current opiate usage. Consult social work. Treatment: Given 75mg Methadone while in the ED,will continue daily [facility] treatment. (4) History of pulmonary embolism: Plan: Patient was diagnosed with pulmonary embolism in 11/17/23. Patient failed to f/u with Pulmonary for PFTs and is no longer receiving treatment and is no longer oxygen dependent. CT revealed no evidence of pulmonary embolism. Lab Results Lab results reviewed: Yes 11/16/24 09:29 11/16/24 09:48
[2024-11-16] MEDS: AZITHROMYCIN INJ 500 MG in SODIUM CHLORIDE 0.9% 250 ML IV SCH (13:23)
--- NOTE | 2024-11-16 15:04 | PHARMACY PROGRESS NOTE ---
Best Possible Medication History Admit Date and Time: 11/16/24 [id number] Home Medications Medication Instructions Recorded Confirmed Type methadone 10 mg/mL oral concentrate 75 mg PO DAILY 04/1111/16/24 History Processed by: Pharmacy Medications reviewed in ED?: Yes Medication History completed: Yes Patient Interview: Pt unable to participate (pt sleeping x 2.) Secondary Source(s): Pharmacy records and Insurance records [facility] Statement: As the person ultimately responsible for medication therapy, providers are able to order a medication from an existing home medication list in [facility] via the "Reconcile Routine" prior to Confirmation of that medication by support services manager. Such practice is discouraged except when the physician, in their clinical judgment, deems that a medical need exists for a medication without regard to previous use.
[2024-11-16] MEDS: guaiFENesin 100 MG/5 ML UDC PO SCH (17:07)
[2024-11-16] MEDS: oxyCODONE 5 MG TABLET PO PRN (17:08)
[2024-11-16] MEDS: SODIUM CHLORIDE FLUSH 0.9% 10 ML SYRINGE IVP SCH (17:08)
[2024-11-16] MEDS: ACETAMINOPHEN 325 MG TABLET PO PRN (18:05)
[2024-11-16] MEDS: cefTRIAXone 1 GM VIAL IVP SCH (18:47)
[2024-11-17 05:55] LABS: HCT - HEMATOCRIT 37.7 % (42.0-52.0); HGB - HEMOGLOBIN 11.8 g/dL (14.0-18.0); MEAN PLATELET VOLUME 10.1 fL (7.4-11.4); NRBC ABSOLUTE COUNT (AUTO) 0.00 x10^3/uL; NUCLEATED RED BLOOD CELLS AUTO 0.0 /100WBC; PLT - PLATELET COUNT 155 10^3/uL (130-450); RED CELL DISTRIBUTION WIDTH 13.4 % (12.0-15.0)
[2024-11-17 06:15] LABS: BUN - BLOOD UREA NITROGEN 15.0 mg/dL (6-20); CARBON DIOXIDE - CO2 28.0 mmol/L (21-32); CREATININE 0.8 mg/dL (0.6-1.3); GFR - MDRD 108.0 (>89)
[2024-11-17] MEDS: ENOXAPARIN 40 MG/0.4 ML SYRINGE SUBQ SCH (09:04)
[2024-11-17] MEDS: METHADONE 50 MG/5 ML ORAL SYRINGE PO SCH (09:16)
--- NOTE | 2024-11-17 10:04 | PROVIDER PROGRESS NOTE ---
Subjective Prog Note Date Prog Note Date: 11/17/24 Prog Note Time: 10:04 Subjective Pt reports feeling: Improved Subjective: Brendan Jimenez is a 39-year-old male with PMH of chronic opiate dependence (Fentanyl and visits a methadone clinic in [place] 6/7 days of the week), hospitalization for PNA in April and pulmonary embolus who presented with pleuritic chest pain and hemoptysis found to be in acute hypoxic respiratory failure secondary to community-acquired PNA. Today, patient reports overall improvement in his respiratory symptoms. He states he is taking breaths easier, and denies pleuritic chest pain that was present on admission. He is taking deep inspirations without pain as well. However, he continues to endorse cough with thick, bloody sputum and shows me an emesis bag with ~20-30cc of this sputum. He denies sore throat, dizziness, nausea, palpitations. He hasn't gotten up out of bed yet but denies dyspnea at rest. Current Medications Current Medications Current Medications: Current Medications Generic Name Dose Route Start Last Admin Trade Name Freq PRN Reason Stop Dose Admin Acetaminophen 650 mg 11/16/24 13:11 11/16/24 18:05 Acetaminophen 325 Mg Tablet PO 650 mg Q4HR PRN Administration Pain 1 to 4, or Fever Albuterol/Ipratropium 3 ml 11/16/24 13:11 Ipratropium/Albuterol 3 Ml Neb INH Q4HR PRN Wheezing Ceftriaxone Sodium 1 gm 11/16/24 19:00 11/17/24 09:04 Ceftriaxone 1 Gm Vial IVP 1 gm DAILY GALO Administration Enoxaparin Sodium 40 mg 11/17/24 09:00 11/17/24 09:04 Enoxaparin 40 Mg/0.4 Ml Syringe SUBQ 40 mg DAILY GALO Administration Guaifenesin 200 mg 11/16/24 16:00 11/17/24 09:04 Guaifenesin 100 Mg/5 Ml Udc PO 200 mg Q4H GALO Administration Azithromycin 500 mg/ Sodium 250 mls @ 250 mls/hr 11/16/24 13:00 11/17/24 09:29 Chloride IV 11/18/24 09:59 250 mls/hr DAILY GALO Administration Lidocaine 1 patch 11/16/24 15:40 11/17/24 09:04 Lidocaine Patch 4% TOP 1 patch DAILY GALO Administration Methadone HCl 75 mg 11/17/24 09:00 11/17/24 09:16 Methadone 50 Mg/5 Ml Oral Syringe PO 75 mg DAILY GALO Administration Ondansetron HCl 4 mg 11/16/24 13:11 Ondansetron 4 Mg/2 Ml Vial IVP Q6HR PRN Nausea / Vomiting Oxycodone HCl 5 mg 11/16/24 13:11 11/17/24 04:08 Oxycodone 5 Mg Tablet PO 5 mg Q4HR PRN Administration Pain 5 to 7 Sodium Chloride 10 ml 11/16/24 13:11 Sodium Chloride Flush 0.9% 10 Ml Syringe IVP PRN PRN NEEDED PER PROVIDER ORDERS Sodium Chloride 10 ml 11/16/24 17:00 11/17/24 09:04 Sodium Chloride Flush 0.9% 10 Ml Syringe IVP 10 ml 0100,0900,1700 GALO Administration Sterile Water 10 ml 11/16/24 13:00 11/17/24 09:03 Water For Injection,Sterile 10 Ml Vial MC 10 ml DAILY GALO Administration Objective Vital Signs/Intake & Output Intake & Output: Intake & Output 11/14/24 11/15/24 11/16/24 11/17/24 23:59 23:59 23:59 23:59 Intake Total 1950 / 1950 Output Total 500 / 500 500 / 500 Balance 1450 / 1450 -475 / -475 Weight (kg) 105 kg Lab Results 11/17/24 05:18 11/17/24 05:18 Other Labs: Lab Results x24hrs 11/17/24 11/16/24 11/16/24 Range/Units 05:18 14:00 09:48 WBC 13.9 H (4.8-10.8) x10^3/uL RBC 4.30 L (4.70-6.10) 10^6/uL Hgb 11.8 L (14.0-18.0) g/dL Hct 37.7 L (42.0-52.0) % MCV 87.7 (80.0-94.0) fL MCH 27.4 (27.0-31.0) pg MCHC 31.3 L (32.0-36.0) g/dL RDW 13.4 (12.0-15.0) % Plt Count 155 (130-450) 10^3/uL MPV 10.1 (7.4-11.4) fL Neut # (Auto) 11.5 H (1.5-6.6) 10^3/uL Lymph # (Auto) 1.1 L (1.5-3.5) 10^3/uL Curry # (Auto) 0.8 (0.0-1.0) 10^3/uL Eos # (Auto) 0.3 (0.0-0.7) 10^3/uL Baso # (Auto) 0.0 (0.0-0.1) 10^3/uL Absolute Nucleated RBC 0.00 x10^3/uL Nucleated RBC % 0.0 /100WBC Sodium 135 133 L (135-145) mmol/L Potassium 3.5 3.8 (3.5-4.5) mmol/L Chloride 101 100 L (101-111) mmol/L Carbon Dioxide 28 26 (21-32) mmol/L Anion Gap 6.0 7.0 (6-13) BUN 15 23 H (6-20) mg/dL Creatinine 0.8 0.9 (0.6-1.3) mg/dL Estimated GFR (MDRD) 108 94 (>89) Glucose 120 H 98 (74-104) mg/dL Calcium 9.1 9.4 (8.5-10.3) mg/dL Magnesium 2.1 (1.7-2.3) mg/dL Total Bilirubin 1.1 H (0.2-1.0) mg/dL AST 27 (10-42) IU/L ALT 17 (10-60) IU/L Alkaline Phosphatase 66 (42-121) IU/L B-Natriuretic Peptide 67 (5-100) pg/mL Total Protein 7.7 (6.4-8.9) g/dL Albumin 4.5 (3.2-5.5) g/dL Globulin 3.2 (2.1-4.2) g/dL Albumin/Globulin Ratio 1.4 (1.0-2.2) Lipase < 10 L (11-82) U/L Procalcitonin Immunoas 5.64 H* (<0.5) ng/mL Nasal Adenovirus (PCR) NOT DETECTED Nasal B. parapertussis DNA (PCR) NOT DETECTED Nasal Coronavir 229E PCR NOT DETECTED Nasal Coronavir HKU1 PCR NOT DETECTED Nasal Coronavir NL63 PCR NOT DETECTED Nasal Coronavir OC43 PCR NOT DETECTED Nasal Enterovir/Rhinovir PCR NOT DETECTED Nasal Influenza B PCR NOT DETECTED Nasal Influenza A PCR NOT DETECTED Nasal Parainfluen 1 PCR NOT DETECTED Nasal Parainfluen 2 PCR NOT DETECTED Nasal Parainfluen 3 PCR NOT DETECTED Nasal Parainfluen 4 PCR NOT DETECTED Nasal RSV (PCR) NOT DETECTED Nasal Screen MRSA (PCR) NEGATIVE (NEGATIVE) Nasal B.pertussis DNA PCR NOT DETECTED Nasal C.pneumoniae (PCR) NOT DETECTED Guy Human Metapneumo PCR NOT DETECTED Nasal M.pneumoniae (PCR) NOT DETECTED Nasal SARS-CoV-2 (PCR) NOT DETECTED Sepsis Event Note (H) Evaluation Current Stage of Sepsis: Sepsis Possible source of Sepsis: positive Pulmonary Sepsis Criteria Sepsis Criteria: WBC count greater than 12,000 or less than 4000 Assessment/Plan Problem List (1) Acute hypoxic respiratory failure: (2) CAP (community acquired pneumonia): Qualifiers: Laterality: right Lung location: lower lobe of lung Qualified Code(s): J18.9 - Pneumonia, unspecified organism (3) Opiate dependence, continuous: (4) History of pulmonary embolism:
--- NOTE | 2024-11-17 11:45 | Discharge Summary ---
Discharge Summary Admit Date: 11/16/24 Discharge Date: 11/17/24 Discharging Provider: BASSAM Mina Code Status: Attempt Resuscitation Discharge Facility Name: Home, self-care with parents DIAGNOSES Discharge Diagnoses with Status of Each Condition: Acute hypoxic respiratory failure, resolved and Community-acquired pneumonia, r esolving, stable for discharge Upon discharge, patient's SpO2 is stable at 94%, titrated from 6L NC on 11/16 to RA on 11/17. - Discharge with outpatient follow-up, social work is working with patient to establish primary care - Azithromycin 500mg PO daily until 11/18, and Amoxicillin-Clavulanate 875mg PO BID beginning 11/18 to complete 5-day course of antibiotics Hemoptysis, stable He continues to have small amounts of hemoptysis, unchanged from prior to admission. CT Chest/Thorax was performed which was negative for pulmonary embolus, but was suggestive of pneumonia (resolving as above) or potential malignancy. 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 in this summary Chronic opiate dependence, chronic, stable - Patient is managed by Methadone clinic in [place], however he takes Fentanyl in addition - He was counselled on signs and symptoms of opiate withdrawal and overdose, encouraged to engage in opiate use with someone else around who can call for help if needed - Discharged with emergency Naloxone in case of opiate overdose HPI History of Present Illness: Brendan Jimenez is a 39-year-old male with PMH of chronic opiate dependence (Fentanyl and visits a methadone clinic in [place] 6/7 days of the week), hospitalization for PNA in April and pulmonary embolus who presented with dyspnea, pleuritic chest pain and hemoptysis found to be in acute hypoxic respiratory failure secondary to community-acquired PNA. He presented to the ED with one day of dyspnea and pleuritic chest pain accompanied by hemoptysis. His pain was described as sharp and localized to the anterior ribs near 4-5 ICS AAL, breathing makes it hurt worse, nothing makes it better. Patient reported coughing clear sputum tinged with small amounts of blood, denied clots. Symptoms were preceded with patient smoking Fentanyl at 9pm last night and had progressed throughout the night. Denied recent illness, no sick contacts. Patient says symptoms are similar to the last time he was hospitalized for PNA. Patient also reported left calf cramping when hes laying down for a long period of time. Patient has a long standing history of opiate dependence and visits a Methadone clinic in [place] daily with exceptions to Wednesday. He was hospitalized in 04/17/23 for pulmonary embolism. CONSULTS | PROCEDURES Consultations: Respiratory Therapy, Part Time Flexible Clerk Procedures: CHEST X-RAY 11/16/24 EXAM: [id number] XR/CXR1VW ([id number]) PROCEDURE: XR Chest 1V INDICATIONS: cough/ dyspnea TECHNIQUE: One view of the chest was acquired. COMPARISON: None. FINDINGS: Surgical changes and devices: None. Lungs and pleura: Increased pulmonary vascularity. Mediastinum: Prominent right hilum. Bones and chest wall: No suspicious bony lesions. Overlying soft tissues appear unremarkable. IMPRESSION: Prominent right hilum. While this could be secondary to's cannot be excluded. CT chest is recommended. CTA CHEST/THORAX 11/16/24 EXAM: [id number] CT/CHTANG ([id number]) PROCEDURE: CT Angio Chest INDICATIONS: cough, hypoxia, hemoptysis, h/o PE CONTRAST: 80ml omni 300 TECHNIQUE: After the administration of intravenous contrast, 2 mm axial images were acquired from the pulmonary apices to the posterior costophrenic angles during the arterial phase. In addition, 1 mm lung kernel and 5 mm soft tissue kernel reconstructions were performed. 3-dimensional coronal oblique maximum intensity projection (MIP) reformats, 8 mm axial MIP, and 5 mm coronal and sagittal MPR reformats were then performed through the thorax. For radiation dose reduction, the following was used: automated exposure control, adjustment of mA and/or kV according to patient size. COMPARISON: Chest x-ray 11/16/2024 FINDINGS: Image quality: Excellent. Large vessels: No filling defects within the opacified pulmonary arteries, accounting for motion and contrast timing. No evidence of acute aortic syndrome or aortic aneurysm. Lungs and pleura: Consolidative opacity within the right middle lobe with thickening extending to the perihilar region, as well as confluent soft tissue density measuring approximately 1.7 cm at the level of the usha. No priors.. No pleural effusions. No pneumothorax. Mediastinum: Heart size is normal. No pericardial effusion. No large vessel abnormality. No mediastinal adenopathy by size criteria. Chest wall and lower neck: Thyroid is unremarkable. No axillary or supraclavicular adenopathy by size. Bones: No aggressive osseous abnormality. Appearance of hemangioma at T11 as well as T12. Upper Abdomen: Unremarkable. IMPRESSION: No pulmonary embolus. Consolidative opacity within the right base extending to the hilar region as well as areas within the mediastinum. While this could represent pneumonia with extensive reactive adenopathy, appearance can also be seen with malignancy. Recommend correlation to patient's symptoms and short interval imaging follow-up to document resolution. HOSPITAL COURSE Hospital Course: In the ED, he was found to hypoxic SpO2 86%, was placed on 6L NC and given Albuterol 2.5mg with improvement to 97%. WBC elevated at 16.7, PCT elevated at 5.64. Respiratory PCR was unremarkable. He had right-sided coarse lung sounds with findings on CTA Chest consistent with pneumonia with extensive reactive adenopathy. He was given Cefepime 2g IV x 1. Of note, his CTA chest was also notable for potential malignancy, however patient preferred to stay at [facility] for PNA treatment rather than be transferred to a different facility for potential bronchoscopy. He was thus admitted to the Hospitalist service for treatment of CAP given leukocytosis and acute respiratory failure. Upon admission, he was placed on IV antibiotics of Ceftriaxone 1g daily and Azithromycin 500mg daily, and given Ipratropium/Albuterol q4h PRN. He remained on 2L NC for most of the day. Respiratory cultures were obtained and sent for analysis. On hospital day 2 11/17, his leukocytosis improved to 13.9. He was titrated to RA with SpO2 maintaining >94%. He remains afebrile and his VSS, his lung sounds are no longer as coarse and rhonchorous. He states his pleuritic chest pain has improved and he is no longer dyspneic. He is being discharged after meeting the following: hypoxia resolved an on room air, improving leukocytosis, afebrile, vital signs stable, improvement in respiratory symptoms. ALLERGIES Allergies Allergy/AdvReac Type Severity Reaction Status Date / Time NSAIDS (Non-Steroidal Allergy Unknown Verified 11/16/24 09:18 Anti-Inflamma MEDICATIONS Ambulatory Orders Medication Instructions Recorded Confirmed methadone 10 mg/mL oral concentrate 75 mg PO DAILY 04/1111/16/24 Augmentin 875 mg-potassium 1 tab PO BID #6 tabs clavulanate 125 mg tablet azithromycin 500 mg tablet 500 mg PO DAILY 1 day #1 ta b 11/17/24 guaifenesin 100 mg/5 mL oral liquid 200 mg (10 mL) PO Q4H #473 mL 11/17/24 lidocaine 4 % topical patch 1 patch topical DAILY #5 e a 11/17/24 naloxone 4 mg/actuation nasal 4 mg intranasal Q2M PRN opioid 11/17/24 spray (Narcan) overdose #2 ea oxycodone 5 mg tablet 5 mg PO Q4HR PRN Pain 5 to 7 #10 11/17/24 tabs PHYSICAL EXAM AT DISCHARGE Vital Signs: Vital Signs x48h Temp Pulse Resp BP Pulse Ox 11/17/24 11:40 36.3 C L 67 20 109/63 94 General Appearance: positive No acute distress and Alert Eyes Bilateral: positive Normal inspection, PERRL and Conjunctivae nml ENT: positive Dry mucous membranes Neck: positive Nml inspection and Trachea midline Respiratory: positive Chest non-tender and No respiratory distress; negative Breath sounds nml (Intermittent coarse lung sounds on inspiration to RLL, improved from initial admission) or Wheezes Cardiovascular: positive Regular rate & rhythm and No murmur Peripheral Pulses: positive 2+ Abdomen: positive Non-tender, Nml bowel sounds and No distention Back: positive Nml inspection Skin: positive Color nml, No rash, Dry and Other (Bruising to L lateral malleolus, mycotic toenails) Extremities: positive Non-tender, Full ROM, Nml appearance and No pedal edema Neurologic/Psychiatric: positive Oriented x3, Motor nml and Sensation nml LABS 11/17/24 05:18 11/17/24 05:18 DIAGNOSTIC IMAGING Diagnostic Imaging Results: Final report reviewed SEPSIS Current Stage of Sepsis: Resolved Possible source of Sepsis: Pulmonary Sepsis Criteria: WBC count greater than 12,000 or less than 4000 TIME SPENT Time Spent in Discharge (Minutes): 35 Discharge Plan Discharge Patient Disposition: Home, Self Care Condition: Stable Prescriptions: New naloxone [Narcan] 4 mg/actuation spray,non-aerosol 4 mg intranasal Q2M PRN (Reason: opioid overdose) Qty: 2 0RF Rx Instructions: spray 1 dose into ONE nostril; alternate nostrils w each dose until help arrives guaifenesin 100 mg/5 mL Liquid 200 mg PO Q4H Qty: 473 0RF lidocaine 4 % Adhesive Patch,Medicated 1 patch topical DAILY Qty: 5 0RF oxycodone 5 mg Tablet 5 mg PO Q4HR PRN (Reason: Pain 5 to 7) Qty: 10 0RF azithromycin 500 mg tablet 500 mg PO DAILY 1 Days Qty: 1 0RF Rx Instructions: Take one tab on 11/18 amoxicillin-pot clavulanate 875-125 mg tablet 1 tab PO BID Qty: 6 0RF Continued methadone 10 mg/mL concentrate 75 mg PO DAILY Rx Instructions: [facility] [place] Last dose 11/15 @ 10:57 - 75 mg (verified with JOJO Cárdenas) Diet: Regular Interventions: Discharge Last Done: 11/17/24 13:48 Discharge Checklist - Nursing Last Done: 11/17/24 13:49 Health Concerns: you came into the hospital with difficulty breathing. You were needing oxygen. We have been able to treat your pneumonia, and get you off oxygen, which means that you can go home. I have written you prescriptions for 2 antibioitics. you need to start them tomorrow- one dose of azithromycin, and 6 doses of Augmentin- finish them all. When you were in the hospital in April of 2023, you had blood clots in both of your lungs. This is why you took Eliquis for 6 months. you did not have any blood clots in your lungs this time, but you did have signs indicating infection and inflammation. Continue with methadone. STOP SMOKING FENTANYL. When you do this, it is harmful to your lungs and you are likely getting other substances as well. you have some findings on your CT of the chest that are concerning. I would strongly recommend that you see pulmonology- reading through your records and from what you have told me you have previously been seen by Dr Carey at [facility] [place]. I have sent him a copy of this report. you need to have your chest imaged again when you are feeling better, to make sure that all of the inflammation in your chest has cleared and there are not underlying masses. It is important that you establish primary care. we have given you a list of people in the community that you can see. If you call promptly, you can often be seen quickly as a "hospital followup" Care Plan Goals: finish all antibiotics as prescribed. Print Language: Tuvaluan Patient Instructions: Pneumonia Community Acquired Stand Alone Forms: PCP List Vitals documented within 30 minutes of discharge?: Yes
[2024-11-17] MEDS ORDERED: cefTRIAXone 1 GM VIAL IVP SCH (13:00)
[2024-11-17 14:57] VITALS: BP 115/63; TEMP 97.2; O2SAT 93
[2024-11-20 20:08] LABS: MYCOPLASMA PNEUMONIAE IGG ABS 421 U/mL (0-99); MYCOPLASMA PNEUMONIAE IGM ABS <770 U/mL (0-769)
--- OUTSIDE RECORDS SUMMARY | 2024-11-21 17:43 | EXTERNAL MEDICAL SUMMARY RPT | Continuity of Care Document ---
Author Organization [facility] Address [address] [place] [id number] Phone Problems date description facility 2024-11-16 12:18 Acute respiratory failure with hypoxia [facility] 2024-11-16 12:49 Acute respiratory failure with hypoxia [facility] 2024-11-16 13:31 Acute respiratory failure with hypoxia [facility] 2024-11-16 13:36 Acute respiratory failure with hypoxia [facility] 2024-11-17 11:49 Acute respiratory failure with hypoxia [facility] 2024-11-17 13:37 Pneumonia, unspecified organism [facility] 2024-11-17 13:37 Acute respiratory failure with hypoxia [facility] 2024-11-17 13:46 Pneumonia, unspecified organism [facility] 2024-11-17 13:46 Acute respiratory failure with hypoxia [facility] 2024-11-17 13:51 Pneumonia, unspecified organism [facility] 2024-11-17 13:51 Acute respiratory failure with hypoxia [facility] 2024-11-17 14:57 Pneumonia, unspecified organism [facility] 2024-11-17 14:57 Acute respiratory failure with hypoxia [facility] 2024-11-21 07:33 Opioid dependence, uncomplicate d [facility] 2024-11-21 07:33 Pneumonia, unspecified organism [facility] 2024-11-21 07:33 Acute respiratory failure with hypoxia [facility] 2024-11-21 07:33 Hemoptysis [facility] 2024-11-21 07:33 Cough, unspecified [facility] 2024-11-21 07:33 [facility]ness of breath [facility] 2024-11-21 07:33 Personal history of pulmonary e mbolism [facility] Results/Labs test date facility value unit notes Result panel 1 NUCLEATED RED BLOOD CELLS AUTO [facility]24-[facility]-16 [facility] /100wbc (missing) EOSINOPHILS # (AUTO) 2024-11-16 09:29 [facility] 0.0 10 3/ul (missing) NRBC ABSOLUTE COUNT (AUTO) 2024-11-16 [facility] .00 x10 3/ul (missing) BASOPHILS # (AUTO) 2024-11-16 09[facility] 0.1 10 3/ul (missing) MONOCYTES # (AUTO) 2024-11-16 09:29 [facility] 1.1 10 3/ul (missing) LYMPHOCYTES # (AUTO) 2024-11-16 09:29 [facility] 1.1 10 3/ul (missing) MEAN PLATELET VOLUME 2024-11-16 09:29 [facility] 10.1 fl (missing) HGB - HEMOGLOBIN 2024-11-16 09:29 [facility] 13.0 g /dl (missing) RED CELL DISTRIBUTION WIDTH 2024-11-16 09:29 [facility] 13.2 % (missing) NEUTROPHILS # (AUTO) 2024-11-16 09:29 [facility] 14.3 10 3/ul (missing) WHITE BLOOD COUNT 2024-11-16 09:29 [facility] 16.7 x10 3/ul (missing) PLT - PLATELET COUNT 2024-11-16 09:29 [facility] 195 10 3/ul (missing) MEAN CORPUSCULAR HEMOGLOBIN 2024-11-16 09:29 [facility] 28.4 pg (missing) MEAN CORPUSCULAR HGB CONC 2024-11-16 09:29 [facility] 33 .8 g/dl (missing) HCT - HEMATOCRIT 2024-11-16 09:29 [facility] 38.5 % (missing) RED BLOOD COUNT 2024-11-16 09:29 [facility] 4.58 10 6/ul (missing) MEAN CORPUSCULAR VOLUME 2024-11-16 09:29 [facility] 84.1 fl (missing) Result panel 2 LIPASE 2024-11-16 09:48 [facility] < 10 u/l As of August 2022 testing method has changed, this may include reference ranges. CREATININE 2024-11-16 09:48 [facility] 0.9 mg/dl As of August 2022 testing method has changed, this may include reference ranges. BILIRUBIN,TOTAL 2024-11-16 09:48 [facility] 1.1 mg/dl As of August 2022 testing method has changed, this may include reference ranges. ALBUMIN/GLOBULIN RATIO 2024-11-16 09:48 [facility] 1.4 (missin g) (missing) CHLORIDE 2024-11-16 09:48 [facility] 100 mmol/l As of August 2022 testing method has changed, this may include reference ranges. SODIUM 2024-11-16 09:48 [facility] 133 mmol/l (missing) ALT ALANINE AMINOTRANSFERASE 2024-11-16 09:48 [facility] 17 iu/l As of August 2022 testing method has changed, this may include reference ranges. MAGNESIUM 2024-11-16 09:48 [facility] 2.1 mg/dl As of August 2022 testing method has changed, this may include reference ranges. BUN - BLOOD UREA NITROGEN 2024-11-16 09:48 [facility] 23 mg/dl As of August 2022 testing method has changed, this may include reference ranges. CARBON DIOXIDE - CO2 2024-11-16 09:48 [facility] 26 mmol/l As of August 2022 testing method has changed, this may include reference ranges. AST ASPARTATE AMINOTRANSFERASE 2024-11-16 09:48 [facility] 27 iu/l As of August 2022 testing method has changed, this may include reference ranges. GLOBULIN 2024-11-16 09:48 [facility] 3.2 g/dl (missing) POTASSIUM 2024-11-16 09:48 [facility] 3.8 mmol/l As of August 2022 testing method has changed, this may include reference ranges. ALBUMIN 2024-11-16 09:48 [facility] 4.5 g/dl As of August 2022 testing method has changed, this may include reference ranges. PROCALCITONIN 2024-11-16 09:48 [facility] 5.64 ng/ml Critical result PrCT 5.64 ng/mL called to and read back by JOHNATHAN Florence/NEHA/ED at 16-Nov-2024 10:48 by kecia. PCT Concentration (ng/mL) Children >72hrs old and Adults Interpretation ====== ======= <0.5 Low risk of severe sepsis and/or septic shock >2.0 High risk of severe sepsis and/or septic shock Concentrations under 0.5 ng/mL do not exclude local infections or systemic infections in their initial stages (e.g. under six hours from onset of illness). PCT concentrations between 0.5 and 2.0 ng/mL should be interpreted with consideration of the patient's history. In this range, it is recommended to retest PCT within 6 to 24hours. ALKALINE PHOSPHATASE 2024-11-16 09:48 [facility] 66 iu/l As of August 2022 testing method has changed, this may include reference ranges. BNP - B-NATRIURETIC PEPTIDE 2024-11-16 09:48 [facility] 67 pg/ml (missing) ANION GAP 2024-11-16 09:48 [facility] 7.0 (missin g) (missing) TOTAL PROTEIN 2024-11-16 09:48 [facility] 7.7 g/dl As of August 2022 testing method has changed, this may include reference ranges. CALCIUM 2024-11-16 09:48 [facility] 9.4 mg/dl As of August 2022 testing method has changed, this may include reference ranges. GFR - MDRD 2024-11-16 09:48 [facility] 94 (missin g) The IDMS-traceable MDRD Study Equation has been validated extensively in and populations between the ages of 18 and 70 with impaired kidney function (eGFR < 60 mL/min/1.73m2) and has shown good performance for patients with all common causes of kidney disease. Although this equation has not been validated for patients older than 70, an MDRD-derived eGFR may still be a useful tool for providers caring for patients older than 70. References: http://www.nkdep.ni h.gov/lab-evaluatio n/gfr/creatinine-st and ardization, last updated April 2011. GLUCOSE 2024-11-16 09:48 [facility] 98 mg/dl As of August 2022 testing method has changed, this may include reference ranges. SARS-CoV-2 -RESP PCR PANEL 2024-11-16 09:48 [facility] NOT DETECTED (missin g) A negative test result for this test indicates that SARS-CoV-2 RNA was not present in the specimen above the limit of detection. Testing performed on the [employer] RP2.1 Panel, a multiplexed nucleic acid repiratory panel. Negative results do not preclude infection with SARS-CoV-2 virus and should not be the sole basis of a patient management decision. In some patients repeat testing at various time points may be necessary for virus detection. False-negative results may arise from improper sample collection, degradation of viral RNA during shipping or storage, the presence of PCR inhibitors, and/or mutation in the SARS-CoV-2 virus. INFLUENZA A- RESP PCR PANEL 2024-11-16 09:48 [facility] NOT DETECTED (missin g) Influenza A including subtypes H1, H3, and H1-2009 not detected by the [employer] RP2.1 Panel, a multiplexed nucleic acid test intended for the simultaneous qualitative detection and differentiation of nucleic acids from multiple viral and bacterial respiratory organisms. B. PARAPERTUSSIS- RESP PCR BALLARD 2024-11-16 09:48 [facility] NOT DETECTED (missin g) Negative results for this organism do not preclude infection with this organism and may require additional laboratory testing (e.g., bacterial and viral culture, immunofluorescence, and radiography) when evaluating a patient with possible respiratory tract infection. B. PERTUSSIS- RESP PCR PANEL 2024-11-16 09:48 [facility] NOT DETECTED (missin g) Negative results for this organism do not preclude infection with this organism and may require additional laboratory testing (e.g., bacterial and viral culture, immunofluorescence, and radiography) when evaluating a patient with possible respiratory tract infection. C. PNEUMONIAE- RESP PCR PANEL 2024-11-16 09:48 [facility] NOT DETECTED (missin g) Negative results for this organism do not preclude infection with this organism and may require additional laboratory testing (e.g., bacterial and viral culture, immunofluorescence, and radiography) when evaluating a patient with possible respiratory tract infection. M. PNEUMONIAE- RESP PCR PANEL 2024-11-16 09:48 [facility] NOT DETECTED (missin g) Negative results for this organism do not preclude infection with this organism and may require additional laboratory testing (e.g., bacterial and viral culture, immunofluorescence, and radiography) when evaluating a patient with possible respiratory tract infection. CORONAVIRUS 229E-RESP PCR 2024-11-16 09:48 [facility] NOT DETECTED (missin g) Negative results in the setting ofa respiratory illness may be due to infection with pathogens not detected by this test, or lower respiratory tract infection that may not be detected by nasopharyngeal specimen. CORONAVIRUS HKU1-RESP PCR 2024-11-16 09:48 [facility] NOT DETECTED (missin g) Negative results in the setting ofa respiratory illness may be due to infection with pathogens not detected by this test, or lower respiratory tract infection that may not be detected by nasopharyngeal specimen. CORONAVIRUS LK88-JIMI PCR 2024-11-16 09:48 [facility] NOT DETECTED (missin g) Negative results in the setting ofa respiratory illness may be due to infection with pathogens not detected by this test, or lower respiratory tract infection that may not be detected by nasopharyngeal specimen. CORONAVIRUS NG12-NJGY PCR 2024-11-16 09:48 [facility] NOT DETECTED (missin g) Negative results in the setting ofa respiratory illness may be due to infection with pathogens not detected by this test, or lower respiratory tract infection that may not be detected by nasopharyngeal specimen. HUMAN METAPNEUMOVIRUS 2024-11-16 09:48 [facility] NOT DETECTED (missin g) Negative results in the setting ofa respiratory illness may be due to infection with pathogens not detected by this test, or lower respiratory tract infection that may not be detected by nasopharyngeal specimen. INFLUENZA B - RESP PCR PANEL 2024-11-16 09:48 [facility] NOT DETECTED (missin g) Negative results in the setting ofa respiratory illness may be due to infection with pathogens not detected by this test, or lower respiratory tract infection that may not be detected by nasopharyngeal specimen. PARAINFLUENZA VIRUS 1 2024-11-16 09:48 [facility] NOT DETECTED (missin g) Negative results in the setting ofa respiratory illness may be due to infection with pathogens not detected by this test, or lower respiratory tract infection that may not be detected by nasopharyngeal specimen. PARAINFLUENZA VIRUS 2 2024-11-16 09:48 [facility] NOT DETECTED (missin g) Negative results in the setting ofa respiratory illness may be due to infection with pathogens not detected by this test, or lower respiratory tract infection that may not be detected by nasopharyngeal specimen. PARAINFLUENZA VIRUS 3 2024-11-16 09:48 [facility] NOT DETECTED (missin g) Negative results in the setting ofa respiratory illness may be due to infection with pathogens not detected by this test, or lower respiratory tract infection that may not be detected by nasopharyngeal specimen. PARAINFLUENZA VIRUS 4 2024-11-16 09:48 [facility] NOT DETECTED (missin g) Negative results in the setting ofa respiratory illness may be due to infection with pathogens not detected by this test, or lower respiratory tract infection that may not be detected by nasopharyngeal specimen. RHINOVIRUS/ENTEROVIRU S 2024-11-16 09:48 [facility] NOT DETECTED (missin g) Negative results in the setting ofa respiratory illness may be due to infection with pathogens not detected by this test, or lower respiratory tract infection that may not be detected by nasopharyngeal specimen. RSV- RESP PCR PANEL 2024-11-16 09:48 [facility] NOT DETECTED (missin g) Negative results in the setting ofa respiratory illness may be due to infection with pathogens not detected by this test, or lower respiratory tract infection that may not be detected by nasopharyngeal specimen. ADENOVIRUS - RESP PCR PANEL 2024-11-16 09:48 [facility] NOT DETECTED (missin g) YES Negative results in the setting ofa respiratory illness may be due to infection with pathogens not detected by this test, or lower respiratory tract infection that may not be detected by nasopharyngeal specimen. Result panel 3 CULTURE, BLOOD #1 2024-11-16 12:08 [facility] NG1D NO GROWTH AFTER 1 DAY (missing) (missing) CULTURE, BLOOD #1 2024-11-16 12:08 [facility] NG2D NO GROWTH AFTER 2 DAYS (missing) (missing) CULTURE, BLOOD #1 2024-11-16 12:08 [facility] NG5D NO GROWTH AFTER 5 DAYS (missing) (missing) Result panel 4 MYCOPLASMA PNEUMONIAE IGM ABS 2024-11-16 13:44 [facility] <770 u/ml Negative <770 Clinically significant amount of M. pneumoniae antibody not detected. Low Positive 770 - 950 M. pneumoniae specific IgM presumptively detected. It is recommended that another sample be collected 1-2 weeks later to assure reactivity. Positive >950 Highly significant amount of M. pneumoniae specific IgM antibody detected. Performed at: [address] [id number] Edi Coordinator: Riddhi Norman MD, Phone: [phone] MYCOPLASMA PNEUMONIAE IGG ABS 2024-11-16 13:44 [facility] 421 u/ml Negative: <100 Indeterminate: 100 - 320 Positive: >320 The reference interval established is intended as a baseline only. Values >100 may indicate a recent infection with Mycoplasma pneumoniae and need to be confirmed either by a positive IgM result and/or an additional specimen drawn 2-4 weeks later showing a significant increase in antibody levels. CULTURE, BLOOD #2 2024-11-16 13:44 [facility] NG1DNO GROWTH AFTER 1 DAY (missing) SHORT SAMPLE AEROBIC ONLY CULTURE, BLOOD #2 2024-11-16 13:44 [facility] NG2DNO GROWTH AFTER 2 DAYS (missing) SHORT SAMPLE AEROBIC ONLY CULTURE, BLOOD #2 2024-11-16 13:44 [facility] NG5DNO GROWTH AFTER 5 DAYS (missing) SHORT SAMPLE AEROBIC ONLY Result panel 5 MISC TEST LABCO REFRIG 2024-11-16 14:00 [facility] COMMENT (missing) [id number] Gram Stain Evaluation With Sputum Culture Reflex [id number] Gram Stain Evaluation With Spu Test Ordered: [id number] Gram Stain w/Sputum Cult Rflx White Blood Cells Many SE Reference Range: . Epithelial Cells Few SE Reference Range: . Result 1 Comment SE Reference Range: . Moderate number of gram positive cocci. Result 2 Comment SE Reference Range: . Moderate gram negative rods. Result 3 Comment SE Reference Range: . Small amount of yeast seen. Result 4 LAUNDRY FOLDER NOLAB Reference Range: . Gram Stain Evaluation Comment SE Reference Range: . This specimen is of good quality and is acceptable for routine bacterial culture. Lower Respiratory Culture Note: SE Final report Reference Range: . Result 1 Comment SE Reference Range: . Routine respiratory stephanie Light growth Performed at: [facility] [address], [place] [id number] Edi Coordinator: Jacob Quiroga MD, Phone: [phone] AFB SPECIMEN PROCESSING 2024-11-16 14:00 [facility] Concentration (missing) (missing) MRSA (NASAL) PCR SCREEN 2024-11-16 14:00 [facility] NEGATIVE (missing) (missing) ACID FAST SMEAR 2024-11-16 14:00 [facility] Negative (missing) Performed at: [facility] - [facility], [place], [place] [id number] Edi Coordinator: Jacob Quiroga MD, Phone: [phone] Result panel 6 NUCLEATED RED BLOOD CELLS AUTO 2024-11-17 05:18 [facility] 0.0 /100wbc (missing) BASOPHILS # (AUTO) 2024-11-17 05:18 [facility] 0.0 10 3/ul (missing) NRBC ABSOLUTE COUNT (AUTO) 2024-11-17 05:18 [facility] 0.00 x10 3/ul (missing) EOSINOPHILS # (AUTO) 2024-11-17 05:18 [facility] 0.3 10 3/ul (missing) MONOCYTES # (AUTO) 2024-11-17 05:18 [facility] 0.8 10 3/ul (missing) CREATININE 2024-11-17 05:18 [facility] 0.8 mg/dl As of August 2022 testing method has changed, this may include reference ranges. LYMPHOCYTES # (AUTO) 2024-11-17 05:18 [facility] 1.1 10 3/ul (missing) MEAN PLATELET VOLUME 2024-11-17 05:18 [facility] 10.1 fl (missing) CHLORIDE 2024-11-17 05:18 [facility] 101 mmol/l As of August 2022 testing method has changed, this may include reference ranges. GFR - MDRD 2024-11-17 05:18 [facility] 108 (missin g) The IDMS-traceable MDRD Study Equation has been validated extensively in and populations between the ages of 18 and 70 with impaired kidney function (eGFR < 60 mL/min/1.73m2) and has shown good performance for patients with all common causes of kidney disease. Although this equation has not been validated for patients older than 70, an MDRD-derived eGFR may still be a useful tool for providers caring for patients older than 70. References: http://www.nkdep.n ih.gov/lab-evaluat ion/gfr/creatinine -stand ardization, last updated April 2011. NEUTROPHILS # (AUTO) 2024-11-17 05:18 [facility] 11.5 10 3/ul (missing) HGB - HEMOGLOBIN 2024-11-17 05:18 [facility] 11.8 g /dl (missing) GLUCOSE 2024-11-17 05:18 [facility] 120 mg/dl As of August 2022 testing method has changed, this may include reference ranges. RED CELL DISTRIBUTION WIDTH 2024-11-17 05:18 [facility] 13.4 % (mi ssing) WHITE BLOOD COUNT 2024-11-17 05:18 [facility] 13.9 x10 3/ul (missing) SODIUM 2024-11-17 05:18 [facility] 135 mmol/l (missing) BUN - BLOOD UREA NITROGEN 2024-11-17 05:18 [facility] 15 mg/dl As of Aug testing method has changed, this may include reference ranges. PLT - PLATELET COUNT 2024-11-17 05:18 [facility] 155 10 3/ul (missing) MEAN CORPUSCULAR HEMOGLOBIN 2024-11-17 05:18 [facility] 27.4 pg (missing) CARBON DIOXIDE - CO2 2024-11-17 05:18 [facility] 28 mmol/l As of August 2022 testing method has changed, this may include reference ranges. POTASSIUM 2024-11-17 05:18 [facility] 3.5 mmol/l As of August 2022 testing method has changed, this may include reference ranges. MEAN CORPUSCULAR HGB CONC 2024-11-17 05:18 [facility] 31.3 g/dl (missing) HCT - HEMATOCRIT 2024-11-17 05:18 [facility] 37.7 % (missing) RED BLOOD COUNT 2024-11-17 05:18 [facility] 4.30 10 6/ul (missing) ANION GAP 2024-11-17 05:18 [facility] 6.0 (missing ) (missing) MEAN CORPUSCULAR VOLUME 2024-11-17 05:18 [facility] [employer] 87.7 fl (missing) CALCIUM 2024-11-17 05:18 [facility] 9.1 mg/dl As of August 2022 testing method has changed, this may include reference ranges. Social History date description facility
--- OUTSIDE RECORDS SUMMARY | 2024-11-21 17:49 | EXTERNAL MEDICAL SUMMARY RPT | Continuity of Care Document ---
Author Organization [facility] Address [address] [place] [id number] Phone Problems date description facility 2024-11-16 12:18 [...] Heal th 2024-11-21 07:33 Shortness of breath [facility] 2024-11-21 07:33 Personal history of pulmonary e mbolism [facility] Results/Labs test date facility value unit notes Result panel 1 NUCLEATED RED BLOOD CELLS AUTO [facility]24[facility]16 [facility] /100wbc (missing) EOSINOPHILS # (AUTO) 2024-11-16 09:29 [facility] 0.0 10 3/ul (missing) NRBC ABSOLUTE COUNT (AUTO) 2024-[facility]-16 09[facility] .00 x10 3/ul (missing) BASOPHILS # (AUTO) 2024-11-16 09[facility] 0.1 10 3/ul (missing) MONOCYTES # (AUTO) 2024-11-16 09:29 [facility] 1.1 10 3/ul (missing) LYMPHOCYTES # (AUTO) 2024-11-16 09:29 [facility] 1.1 10 3/ul (missing) MEAN PLATELET VOLUME 2024-11-16 09:29 [facility] 10.1 fl (missing) HGB - HEMOGLOBIN 2024-11-16 09:29 [facility] 13.0 g /dl (missing) RED CELL DISTRIBUTION WIDTH 2024-11-16 09:29 [facility] 13.2 % (missing) NEUTROPHILS # (AUTO) 2024-11-16 09:29 [facility] 14.3 10 3/ul (missing) WHITE BLOOD COUNT 2024-11-16 09:29 [facility] 16.7 x10 3/ul (missing) PLT - PLATELET COUNT 2024-11-16 09:29 [facility] 195 10 3/ul (missing) MEAN CORPUSCULAR HEMOGLOBIN 2024-11-16 09:29 [facility] 28.4 pg (missing) MEAN CORPUSCULAR HGB CONC 2024-11-16 09:29 [facility] 33 .8 g/dl (missing) HCT - HEMATOCRIT 2024-11-16 09:29 [facility] 38.5 % (missing) RED BLOOD COUNT 2024-11-16 09:29 [facility] 4.58 10 6/ul (missing) MEAN CORPUSCULAR VOLUME 2024-11-16 09:29 [facility] 84.1 fl (missing) Result panel 2 LIPASE 2024-11-16 09:48 [facility] < 10 u/l As of August 2022 testing method has changed, this may include reference ranges. CREATININE 2024-11-16 09:48 [facility] 0.9 mg/dl As of August 2022 testing method has changed, this may include reference ranges. BILIRUBIN,TOTAL 2024-11-16 09:48 [facility] 1.1 mg/dl As of August 2022 testing method has changed, this may include reference ranges. ALBUMIN/GLOBULIN RATIO 2024-11-16 09:48 [facility] 1.4 (missin g) (missing) CHLORIDE 2024-11-16 09:48 [facility] 100 mmol/l As of August 2022 testing method has changed, this may include reference ranges. SODIUM 2024-11-16 09:48 [facility] 133 mmol/l (missing) ALT ALANINE AMINOTRANSFERASE 2024-11-16 09:48 [facility] 17 iu/l As of August 2022 testing method has changed, this may include reference ranges. MAGNESIUM 2024-11-16 09:48 [facility] 2.1 mg/dl As of August 2022 testing method has changed, this may include reference ranges. BUN - BLOOD UREA NITROGEN 2024-11-16 09:48 [facility] 23 mg/dl As of August 2022 testing method has changed, this may include reference ranges. CARBON DIOXIDE - CO2 2024-11-16 09:48 [facility] 26 mmol/l As of August 2022 testing method has changed, this may include reference ranges. AST ASPARTATE AMINOTRANSFERASE 2024-11-16 09:48 [facility] 27 iu/l As of August 2022 testing method has changed, this may include reference ranges. GLOBULIN 2024-11-16 09:48 [facility] 3.2 g/dl (missing) POTASSIUM 2024-11-16 09:48 [facility] 3.8 mmol/l As of August 2022 testing method has changed, this may include reference ranges. ALBUMIN 2024-11-16 09:48 [facility] 4.5 g/dl As of August 2022 testing method has changed, this may include reference ranges. PROCALCITONIN 2024-11-16 09:48 [facility] 5.64 ng/ml Critical result PrCT 5.64 ng/mL [...] 6 to 24hours. ALKALINE PHOSPHATASE 2024-11-16 09:48 [facility] 66 iu/l As of August 2022 testing method has changed, this may include reference ranges. BNP - B-NATRIURETIC PEPTIDE 2024-11-16 09:48 [facility] 67 pg/ml (missing) ANION GAP 2024-11-16 09:48 [facility] 7.0 (missin g) (missing) TOTAL PROTEIN 2024-11-16 09:48 [facility] 7.7 g/dl As of August 2022 testing method has changed, this may include reference ranges. CALCIUM 2024-11-16 09:48 [facility] 9.4 mg/dl As of August 2022 testing method has changed, this may include reference ranges. GFR - MDRD 2024-11-16 09:48 [facility] 94 (missin g) The IDMS-traceable MDRD Study [...] last updated April 2011. GLUCOSE 2024-11-16 09:48 [facility] 98 mg/dl As of August 2022 testing method has changed, this may include reference ranges. SARS-CoV-2 -RESP PCR PANEL 2024-11-16 09:48 [facility] NOT DETECTED (missin g) A negative test result for this test indicates that SARS-CoV-2 RNA was not present in the specimen above the limit of detection. Testing performed on the [employer] RP2.1 Panel, a multiplexed nucleic acid repiratory [...] INFLUENZA A- RESP PCR PANEL 2024-11-16 09:48 [facility] NOT DETECTED (missin g) Influenza A including [...] B. PERTUSSIS- RESP PCR PANEL 2024-11-16 09:48 [facility] NOT DETECTED (missin g) Negative results [...] not be detected by nasopharyngeal specimen. CORONAVIRUS QA66-WRNP PCR 2024-11-16 09:48 [facility] NOT DETECTED (missin g) Negative results in the setting ofa respiratory illness may be due to infection with pathogens not detected by this test, or lower respiratory tract infection that may not be detected by nasopharyngeal specimen. CORONAVIRUS VT16-XIQU PCR 2024-11-16 09:48 [facility] NOT DETECTED [...] (missing) (missing) CULTURE, BLOOD #1 2024-11-16 12:08 [facility] NG5D NO GROWTH AFTER 5 DAYS (missing) (missing) Result panel 4 MYCOPLASMA PNEUMONIAE IGM ABS 2024-11-16 13:44 [facility] <770 u/ml Negative <770 Clinically significant amount of M. pneumoniae antibody not detected. Low Positive 770 - 950 M. pneumoniae specific IgM presumptively detected. It is recommended that another sample be collected 1-2 weeks later to assure reactivity. Positive >950 Highly significant amount of M. pneumoniae specific IgM antibody detected. Performed at: [address] [id number] Film Printer: Riddhi Norman MD, Phone: [phone] MYCOPLASMA PNEUMONIAE IGG ABS 2024-11-16 13:44 [facility] 421 u/ml Negative: <100 Indeterminate: 100 - 320 Positive: >320 The reference interval established is intended as a baseline only. Values >100 may indicate a recent infection with Mycoplasma pneumoniae and need to be confirmed either by a positive IgM result and/or an additional specimen drawn 2-4 weeks later showing a significant increase in antibody levels. CULTURE, BLOOD #2 2024-11-16 13:44 [facility] NG1DNO GROWTH AFTER 1 DAY (missing) SHORT SAMPLE AEROBIC ONLY CULTURE, BLOOD #2 2024-11-16 13:44 [facility] NG2DNO GROWTH AFTER 2 DAYS (missing) SHORT SAMPLE AEROBIC ONLY CULTURE, BLOOD #2 2024-11-16 13:44 [facility] NG5DNO GROWTH AFTER 5 DAYS (missing) SHORT SAMPLE AEROBIC ONLY Result panel 5 MISC TEST [facility] REFRIG 2024-11-16 14:00 [facility] COMMENT (missing) 270249 Gram Stain Evaluation With Sputum Culture Reflex [id number] Gram Stain Evaluation With Spu Test Ordered: [id number] Gram Stain w/Sputum Cult Rflx White Blood Cells Many SE Reference Range: . Epithelial Cells Few SE Reference Range: . Result 1 Comment SE Reference Range: . Moderate number of gram positive cocci. Result 2 Comment SE Reference Range: . Moderate gram negative rods. Result 3 Comment SE Reference Range: . Small amount of yeast seen. Result 4 [employer] NOLAB Reference Range: . Gram Stain Evaluation Comment SE Reference Range: . This specimen is of good quality and is acceptable for routine bacterial culture. Lower Respiratory Culture Note: SE Final report Reference Range: . Result 1 Comment SE Reference Range: . Routine respiratory stephanie Light growth Performed at: [facility], [place] [id number] Film Printer: Jacob Quiroga MD, Phone: [phone] AFB SPECIMEN PROCESSING 2024-11-16 14:00 [facility] Concentration (missing) (missing) MRSA (NASAL) PCR SCREEN 2024-11-16 14:00 [facility] NEGATIVE (missing) (missing) ACID FAST SMEAR 2024-11-16 14:00 [facility] Negative (missing) Performed at: [facility] - [facility], [place], [place] [id number] Film Printer: Jacob Quiroga MD, Phone: [phone] Result panel 6 NUCLEATED RED BLOOD CELLS AUTO 2024-11-17 05:18 [facility] 0.0 /100wbc (missing) BASOPHILS # (AUTO) 2024-11-17 05:18 [facility] 0.0 10 3/ul (missing) NRBC ABSOLUTE COUNT (AUTO) 2024-11-17 05:18 [facility] 0.00 x10 3/ul (missing) EOSINOPHILS # (AUTO) 2024-11-17 05:18 [facility] 0.3 10 3/ul (missing) MONOCYTES # (AUTO) 2024-11-17 05:18 [facility] 0.8 10 3/ul (missing) CREATININE 2024-11-17 05:18 [facility] 0.8 mg/dl As of August 2022 testing method has changed, this may include reference ranges. LYMPHOCYTES # (AUTO) 2024-11-17 05:18 [facility] 1.1 10 3/ul (missing) MEAN PLATELET VOLUME 2024-11-17 05:18 [facility] 10.1 fl (missing) CHLORIDE 2024-11-17 05:18 [facility] 101 mmol/l As of August 2022 testing method has changed, this may include reference ranges. GFR - MDRD 2024-11-17 05:18 [facility] 108 (missin g) The IDMS-traceable MDRD Study [...] April 2011. NEUTROPHILS # (AUTO) 2024-11-17 05:18 [facility] 11.5 10 3/ul (missing) HGB - HEMOGLOBIN 2024-11-17 05:18 [facility] 11.8 g /dl (missing) GLUCOSE 2024-11-17 05:18 [facility] 120 mg/dl As of August 2022 testing method has changed, this may include reference ranges. RED CELL DISTRIBUTION WIDTH 2024-11-17 05:18 [facility] 13.4 % (mi ssing) WHITE BLOOD COUNT 2024-11-17 05:18 [facility] 13.9 x10 3/ul (missing) SODIUM 2024-11-17 05:18 [facility] 135 mmol/l (missing) BUN - BLOOD UREA NITROGEN 2024-11-17 05:18 [facility] 15 mg/dl As of Aug testing method has changed, this may include reference ranges. PLT - PLATELET COUNT 2024-11-17 05:18 [facility] 155 10 3/ul (missing) MEAN CORPUSCULAR HEMOGLOBIN 2024-11-17 05:18 [facility] 27.4 pg (missing) CARBON DIOXIDE - CO2 2024-11-17 05:18 [facility] 28 mmol/l As of August 2022 testing method has changed, this may include reference ranges. POTASSIUM 2024-11-17 05:18 [facility] 3.5 mmol/l As of August 2022 testing method has changed, this may include reference ranges. MEAN CORPUSCULAR HGB CONC 2024-11-17 05:18 [facility] 31.3 g/dl (missing) HCT - HEMATOCRIT 2024-11-17 05:18 [facility] 37.7 % (missing) RED BLOOD COUNT 2024-11-17 05:18 [facility] 4.30 10 6/ul (missing) ANION GAP 2024-11-17 05:18 [facility] 6.0 (missing ) (missing) MEAN CORPUSCULAR VOLUME 2024-11-17 05:18 [facility] [place] 87.7 fl (missing) CALCIUM 2024-11-17 05:18 [facility] 9.1 mg/dl As of August 2022 testing method has changed, this may include reference ranges. Social History date description facility
== END 2024-11-17 14:52 | disposition home or self-care (01) ==
LOC: ED 09:10 → MS2 12:15 → INTOOBSV 12:15 → MS2 14:47
PROVIDERS: ADMIT Physician Assistant Medical; ATTEND Physician Assistant Medical